=== PATIENT | male | born 1960 | race Hispanic/Latino ===

== ENCOUNTER 2016-07-22 09:19 | Emergency (ER) | payer MEDICARE ==
[2016-07-22 09:36] VITALS: BP 118/86
--- NOTE | 2016-07-22 09:59 | Emergency Department Report ---
Upper Extremity - HPI Chief Complaint: Extremity Injury, Upper Stated Complaint: POSS BROKEN LT WRIST/PAIN Time Seen by Provider: 07/22/16 09:53 Upper Extremity: Left Wrist (pain from injury), Left Hand (pain from injury) Occurred When: 1 Day Mechanism: Fall Severity: severe Symptoms: Yes Pain with Movement (left wrist and hand), No Deformity, No Limited Range of Movement, No Numbness, No Weakness, No Swelling, No Bruising/ Ecchymosis Other History: Patient here reported that he slipped down steps yesterday and injured his left wrist and he is having pain to wrist and hand. He said he took Lortab at home. He said that it relieved the pain a little. He also said that he is applying heat to the site. Denies any numbness or tingling. Denies any head injury. He said he tripped and slipped down about 2 steps. ED Review of Systems ROS: Stated complaint: POSS BROKEN LT WRIST/PAIN Other details as noted in HPI Comment: All other systems reviewed and negative Constitutional: denies: chills, fever Respiratory: no symptoms reported Cardiovascular: denies: chest pain, palpitations, edema, syncope Gastrointestinal: denies: abdominal pain, nausea, vomiting Musculoskeletal: arthralgia. denies: back pain, joint swelling Skin: denies: rash Neurological: denies: numbness, paresthesias, confusion, vertigo ED Past Medical Hx - Past Medical History Previous Medical History?: Yes Hx Congestive Heart Failure: No Hx Diabetes: No Hx Deep Vein Thrombosis: Yes (LEFT LEG AND HX OF IVC FILTER.) Hx Asthma: No Hx COPD: No Additional medical history: back problems chronic back pain in pain management. - Surgical History Past Surgical History?: Yes Additional Surgical History: DVT left leg, choco filter - Social History Smoking Status: Current Every Day Smoker Substance Use Type: Alcohol, Prescribed - Medications Home Medications: Home Medications Medication Instructions Recorded Confirmed Last Taken Type Cyclobenzaprine [Flexeril] 10 mg PO TID PRN #20 tablet 10/27/15 11/10/15 Unknown Rx oxyCODONE /ACETAMINOPHEN [Percocet 1 - 2 tab PO Q6HR PRN #20 tablet 10/27/15 Unknown Rx 5/325] Rivaroxaban [Xarelto] 15 mg PO BID #42 tablet 04/24/16 Unknown Rx Rivaroxaban [Xarelto] 20 mg PO QDAY #30 tab 12/25/15 Unknown Rx Upper Extremity Exam - Exam General: Vital signs noted. No distress. Alert and acting appropriately. This is a 55-year-old male well-nourished well-developed in no acute distress. Head and Torso: No HEENT Abnormality, No Neck Tenderness, No Chest/Lungs Abnormality, No Abdominal Tenderness, No Back Tenderness Shoulder Exam: Yes Normal Range of Motion in Shoulder, No Shoulder Tenderness, No Clavicle Tenderness, No Shoulder Deformity, No AC Joint Tenderness Arm Exam: No Arm/Humerus Tenderness, No Arm Deformity Elbow: Yes Normal Range of Motion in Elbow, No Elbow Tenderness, No Elbow Deformity Forearm: No Forearm Tenderness, No Forearm Deformity, No Pain with Pronation, No Pain with Supination Wrist: Yes Wrist Tenderness, Yes Normal ROM in Wrist, No Wrist Deformity, No Snuffbox Tenderness, No Pain with Axial Thumb Compression Hand: Yes Hand Deformity, Yes Normal ROM in Digit(s), No Hand Tenderness, No Digit Tenderness, No Digit(s) Deformity, No Tendon Dysfunction CMS Exam: Yes Normal Distal Pulses, Yes Normal Capillary Refill, Yes Normal Distal Sensation, No Broken Skin ED Course Vital Signs 07/22/16 09:28 Temperature 97.7 F Pulse Rate 90 Respiratory 16 Rate Blood Pressure 118/86 O2 Sat by Pulse 100 Oximetry - Reevaluation(s) Reevaluation #1: 07/22/16 11:15 Patient given Motrin 800 mg in emergency room for pain ED Medical Decision Making - Radiology Data Radiology results: report reviewed X-ray report of left hand and wrist revealed no fracture or dislocation. - Medical Decision Making ED course: I discussed with patient that his x-ray results were normal and he has no fracture or dislocation. Patient discharged home and he said he will take his Lortab as needed for pain. Discharged home to follow up with orthopedic doctor if pain does not resolved in 2 days. Critical care attestation.: If time is entered above; I have spent that time in minutes in the direct care of this critically ill patient, excluding procedure time. ED Disposition Clinical Impression: Arthralgia of multiple sites, Encounter for smoking cessation counseling Accidental fall Qualifiers: Encounter type: initial encounter Qualified Code(s): W19.XXXA - Unspecified fall, initial encounter Disposition: DISCHARGED TO HOME OR SELFCARE Is pt being admited?: No Does the pt Need Aspirin: No Condition: Stable Instructions: Arthralgia (ED), How to Stop Smoking (ED) Additional Instructions: Rest, ice and elevate area. Referrals: AAYN GUZMÁN MD [Staff Physician] - 07/27/16 Forms: Accompanied Note, Work/School Release Form(ED)
[2016-07-22] MEDS ORDERED: MOTRIN PO ONE (10:00)
--- NOTE | 2016-07-22 10:28 | XRay Report ---
LEFT HAND: The bony architecture is intact. Bony alignment is normal. No soft tissue abnormalities are seen. The joint spaces appear preserved. IMPRESSION: Normal left hand.
--- NOTE | 2016-07-22 10:30 | XRay Report ---
LEFT WRIST: Routine views demonstrate the carpal bones to be well mineralized with well preserved bony mineralization and interosseous joint spaces. The carpal and adjacent articular bones have normal contours. The surrounding soft tissues are unremarkable. IMPRESSION: Normal study.
== END 2016-07-22 11:25 | disposition home or self-care (01) ==
LOC: ED 09:19
DX: M25.532 Pain in left wrist (principal); M79.642 Pain in left hand; Z71.6 Tobacco abuse counseling; G89.29 Other chronic pain; F17.200 Nicotine dependence, unspecified, uncomplicated; Z86.718 Personal history of other venous thrombosis and embolism
CPT/HCPCS: 99283

== ENCOUNTER 2019-12-05 13:06 | Observation (INO) | payer MEDICARE ==
[2019-12-05 14:39] LABS: BUN/Creatinine Ratio 9; Blood Urea Nitrogen 8 mg/dL (9-20); Calcium 9.6 mg/dL (8.4-10.2); Hemolysis Index 34
[2019-12-05 14:43] LABS: Basophils # (Auto) 0.1 K/mm3 (0.0-0.1); Basophils % (Auto) 1.3 % (0.0-1.8); Eosinophils # (Auto) 0.3 K/mm3 (0.0-0.4); Eosinophils % (Auto) 3.8 % (0.0-4.3); Hematocrit 56.8 % (35.5-45.6); Hemoglobin 19.3 gm/dl (11.8-15.2); Lymphocytes # (Auto) 1.9 K/mm3 (1.2-5.4); Mean Corpuscular HGB Conc 34 % (32-34); Mean Corpuscular Volume 105 fl (84-94); Monocytes # (Auto) 0.4 K/mm3 (0.0-0.8); Monocytes % (Auto) 6.7 % (0.0-7.3); Platelet Count 259 K/mm3 (140-440); Red Blood Count 5.39 M/mm3 (3.65-5.03)
--- NOTE | 2019-12-05 16:04 | Emergency Department Report ---
ED General Adult HPI - General Chief complaint: Dyspnea/Respdistress Stated complaint: SANDEE/CHEST PAIN PUI?: No Time Seen by Provider: 12/05/19 16:02 Source: patient, EMS ( EMS documentation not available at time of chart dictation ), RN notes reviewed, old records reviewed Mode of arrival: Ambulatory Limitations: No Limitations - History of Present Illness Initial comments: Vascular surgery: Dr. Iniguez Past medical history: COPD/emphysema, hypertension, massive pulmonary embolus, status post catheter directed lysis/ EKOS, right lower extremity DVT, recent complicated hospital course, compliant with Eliquis therapy, recently admitted to this hospital for pulmonary embolism, had ultrasound confirmed DVT in left lower extremity, seen by vascular surgeon, had fluoroscopic guided removal of suprarenal IVC filter, venography, and aspiration thrombectomy with an 8 Serbian sheath of a small amount of residual thrombus in the infrarenal IVC filter. Patient presents to the ER today with a complaint of nontraumatic left lower extremity pain and swelling. He feels like he has "another blood clot." He also endorses painless shortness of breath. There is no fever, no coronavirus exposure that he is aware of. There is no chest pain. There is no complaint of headache, neck pain, chest pain, abdominal pain, he denies urinary symptoms, and he denies hematemesis and bright red blood per rectum. Shortness of breath is constant, does not radiate anywhere, worsens with physical exertion and decreases with rest. Left lower extremity pain and swelling is constant, does not radiate anywhere, increases with palpation, range of motion, and decreases with rest -: days(s) Location: left, lower extremity Quality: other Consistency: other Improves with: other Worsens with: other Associated Symptoms: other - Related Data Previous Rx's Medication Instructions Recorded Last Taken Type Apixaban [Eliquis] 2 tab PO BID #120 09/22/19 Unknown Rx Budesonide/Formoterol Fumarate 10.2 gm IH BIDPC #1 hfa.aer.ad 09/22/19 Unknown Rx [Symbicort 160-4.5 Mcg Inhaler] HYDROcodone/APAP 10-325 1 tab PO Q6H PRN #15 09/22/19 Unknown Rx Nicotine [Habitrol] 14 mg TD QDAY #14 patch 09/22/19 Unknown Rx Pantoprazole [Protonix TAB] 40 mg PO DAILY #30 tablet 09/22/19 Unknown Rx Aspirin EC [Halfprin EC] 81 mg PO QDAY #30 tablet. 12/06/19 Unknown Rx Allergies Allergy/AdvReac Type Severity Reaction Status Date / Time No Known Allergies Allergy Verified 11/10/19 17:15 ED Review of Systems ROS: Stated complaint: SANDEE/CHEST PAIN Other details as noted in HPI Constitutional: denies: fever Eyes: denies: eye discharge ENT: denies: congestion Respiratory: shortness of breath Cardiovascular: denies: chest pain Gastrointestinal: denies: abdominal pain, hematemesis, melena, hematochezia Genitourinary: denies: dysuria Musculoskeletal: arthralgia, myalgia Skin: denies: lesions Neurological: denies: headache, weakness Psychiatric: anxiety Hematological/Lymphatic: denies: easy bleeding ED Past Medical Hx - Past Medical History Previous Medical History?: Yes Hx Congestive Heart Failure: No Hx Diabetes: No Hx Deep Vein Thrombosis: Yes (LEFT LEG AND HX OF IVC FILTER.) Hx Renal Disease: Yes Hx Asthma: No Hx COPD: No Additional medical history: back problems chronic back pain in pain management. - Surgical History Past Surgical History?: Yes Additional Surgical History: DVT left leg, hcoco filter - Social History Smoking Status: Current Every Day Smoker Substance Use Type: None - Medications Home Medications: Home Medications Medication Instructions Recorded Confirmed Last Taken Type Apixaban [Eliquis] 2 tab PO BID #120 09/22/19 12/06/19 Unknown Rx Budesonide/Formoterol Fumarate 10.2 gm IH BIDPC #1 hfa.aer.ad 09/22/19 12/06/19 Unknown Rx [Symbicort 160-4.5 Mcg Inhaler] HYDROcodone/APAP 10-325 1 tab PO Q6H PRN #15 09/22/19 12/06/19 Unknown Rx Nicotine [Habitrol] 14 mg TD QDAY #14 patch 09/22/19 12/06/19 Unknown Rx Pantoprazole [Protonix TAB] 40 mg PO DAILY #30 tablet 09/22/19 12/06/19 Unknown Rx Aspirin EC [Halfprin EC] 81 mg PO QDAY #30 tablet. 12/06/19 Unknown Rx ED Physical Exam - General Limitations: No Limitations General appearance: alert, in no apparent distress - Head Head exam: Present: atraumatic, normocephalic - Eye Eye exam: Present: normal appearance, EOMI. Absent: nystagmus - ENT ENT exam: Present: normal exam, normal orophraynx, mucous membranes moist, normal external ear exam - Neck Neck exam: Present: normal inspection, full ROM. Absent: tenderness, meningismus - Respiratory Respiratory exam: Present: normal lung sounds bilaterally. Absent: respiratory distress - Cardiovascular Cardiovascular Exam: Present: regular rate, normal rhythm, normal heart sounds. Absent: bradycardia, tachycardia, irregular rhythm, systolic murmur, diastolic murmur, rubs, gallop - GI/Abdominal GI/Abdominal exam: Present: soft. Absent: distended, tenderness, guarding, rebound, rigid, pulsatile mass - Rectal Rectal exam: Present: deferred - Extremities Exam Extremities exam: Present: normal inspection, full ROM, other (2+ pulses noted in the bilateral upper and lower extremities. There is no long bony tenderness. The muscular compartments are soft. There appears to be asymmetric swelling and engorgement of left lower extremity veins. There is a palpable cord. The compartments are soft. There is no evidence of cellulitis). Absent: calf tenderness - Back Exam Back exam: Present: normal inspection, full ROM. Absent: tenderness, CVA tenderness (R), CVA tenderness (L), paraspinal tenderness, vertebral tenderness - Neurological Exam Neurological exam: Present: alert, oriented X3, normal gait, other (No facial droop. Tongue midline. Extraocular movements intact bilaterally. Facial sensation intact to light touch in V1, V2, V3 distribution bilaterally. 5 and a 5 strength in 4 extremities. Sensation intact to light touch in 4 extremities.). Absent: motor sensory deficit - Psychiatric Psychiatric exam: Present: normal affect, normal mood - Skin Skin exam: Present: warm, dry, intact, normal color. Absent: rash ED Course Vital Signs 12/05/19 12/05/19 12/05/19 13:22 18:26 19:28 Temperature 98.6 F Pulse Rate 75 78 69 Respiratory 18 18 19 Rate Blood Pressure 129/88 Blood Pressure 138/68 [Right] O2 Sat by Pulse 96 98 95 Oximetry 12/05/19 12/05/19 12/05/19 19:30 19:32 19:46 Temperature Pulse Rate 74 87 Respiratory 18 16 Rate Blood Pressure 139/92 Blood Pressure 139/72 [Right] O2 Sat by Pulse 93 92 Oximetry 12/05/19 12/05/19 12/05/19 20:00 20:30 21:00 Temperature Pulse Rate 69 74 69 Respiratory 17 17 16 Rate Blood Pressure 127/77 127/77 117/71 Blood Pressure [Right] O2 Sat by Pulse 91 94 91 Oximetry 12/05/19 12/05/19 12/05/19 21:15 21:30 21:32 Temperature Pulse Rate 74 72 80 Respiratory 21 19 18 Rate Blood Pressure 117/71 117/71 117/71 Blood Pressure [Right] O2 Sat by Pulse 96 95 94 Oximetry 12/05/19 12/05/19 12/05/19 22:00 22:30 22:46 Temperature Pulse Rate 65 68 Respiratory 15 15 Rate Blood Pressure 115/73 115/73 Blood Pressure [Right] O2 Sat by Pulse 95 93 94 Oximetry 12/05/19 12/05/19 12/05/19 23:00 23:16 23:30 Temperature Pulse Rate 68 64 63 Respiratory 16 12 13 Rate Blood Pressure 115/73 121/87 121/87 Blood Pressure [Right] O2 Sat by Pulse 96 93 93 Oximetry 12/06/19 12/06/19 12/06/19 00:00 00:16 00:30 Temperature Pulse Rate 63 61 67 Respiratory 14 14 14 Rate Blood Pressure 114/73 114/73 114/73 Blood Pressure [Right] O2 Sat by Pulse 90 93 94 Oximetry 12/06/19 12/06/19 12/06/19 00:46 01:00 01:16 Temperature Pulse Rate 63 59 L 61 Respiratory 15 15 15 Rate Blood Pressure 114/73 119/69 114/73 Blood Pressure [Right] O2 Sat by Pulse 94 91 94 Oximetry 12/06/19 12/06/19 12/06/19 01:30 01:46 02:00 Temperature Pulse Rate 64 59 L 62 Respiratory 14 11 L 16 Rate Blood Pressure 114/73 119/69 122/73 Blood Pressure [Right] O2 Sat by Pulse 96 96 92 Oximetry 12/06/19 12/06/19 12/06/19 02:16 02:30 02:46 Temperature Pulse Rate 68 64 65 Respiratory 13 13 12 Rate Blood Pressure 122/73 122/73 122/73 Blood Pressure [Right] O2 Sat by Pulse 93 93 92 Oximetry 12/06/19 12/06/19 12/06/19 03:00 03:16 03:30 Temperature Pulse Rate 59 L 60 58 L Respiratory 13 12 13 Rate Blood Pressure 106/70 106/70 106/70 Blood Pressure [Right] O2 Sat by Pulse 92 93 95 Oximetry 12/06/19 12/06/19 12/06/19 04:00 04:30 05:00 Temperature Pulse Rate 59 L 63 57 L Respiratory 15 13 14 Rate Blood Pressure 119/78 119/78 113/74 Blood Pressure [Right] O2 Sat by Pulse 89 94 96 Oximetry 12/06/19 12/06/19 12/06/19 05:16 05:30 05:46 Temperature Pulse Rate 58 L 56 L Respiratory 13 14 Rate Blood Pressure 113/74 113/74 113/74 Blood Pressure [Right] O2 Sat by Pulse 97 95 94 Oximetry 12/06/19 12/06/19 12/06/19 06:00 06:16 06:30 Temperature Pulse Rate Respiratory Rate Blood Pressure 116/74 113/74 113/74 Blood Pressure [Right] O2 Sat by Pulse 94 95 96 Oximetry 12/06/19 12/06/19 12/06/19 07:00 08:00 09:00 Temperature 97.7 F Pulse Rate 67 70 76 Respiratory 14 23 15 Rate Blood Pressure 128/87 132/81 Blood Pressure [Right] O2 Sat by Pulse 96 96 97 Oximetry 12/06/19 12/06/19 10:00 11:00 Temperature 97.8 F Pulse Rate 62 63 Respiratory 15 15 Rate Blood Pressure 127/85 117/79 Blood Pressure [Right] O2 Sat by Pulse 97 96 Oximetry - Reevaluation(s) Reevaluation #1: 12/05/19 16:54 Differential diagnosis, including but not limited to: COPD, pneumonia, pulmonary embolism, acute coronary syndrome, Hoyt's cyst Assessment and plan: 59-year-old gentleman with 2 complaints. First complaint is left lower extremity pain and swelling. Suspicious for acute DVT. As per review of old medical records, was diagnosed with acute DVT a few weeks ago. He reports compliance with systemic anticoagulation. Lower extremity DVT study ordered. We will treat his pain. Second complaint is shortness of breath which is painless. Suspicious for pulmonary embolism versus pulmonary hypertension versus COPD. He is not wheezing, not tachypneic, tachycardic or hypoxic. Given his impressive and complex past medical history, it is my opinion that objective imaging is needed to further evaluate his complaint. CT scan of the chest is ordered. He is already on systemic anticoagulation. After diagnostics have resulted, we will reassess. EKG is reviewed and appreciated, fairly unchanged from prior, troponin negative x2. Reevaluation #2: 12/05/19 17:39 Discussed history, physical, sonographic findings with vascular surgeon, Dr. Carrasco. He is agreeable to following in consultation. He is in agreement with unfractionated heparin. I will call back Dr. Carrasco once CT scans have been resulted. Reevaluation #3: 12/05/19 19:16 CT scan of the chest shows chronic findings. CT scan abdomen pelvis inconclusive/nondiagnostic heparin drip to continue Dr Val Quevedo to admit Dr Mike Carrasco to be updated Patient meets criteria for hospitalization as he continues to develop acute clots, and has extensive clot burden, in the setting of compliance with Eliquis/systemic anticoagulation. Reevaluation #4: 12/05/19 19:[address] Carrasco on patient's imaging findings. We are in agreement that the patient can be seen by vascular surgery tomorrow morning. Patient updated on findings. ED Medical Decision Making - Lab Data Result diagrams: 12/05/19 14:05 12/05/19 14:05 Vital Signs 12/05/19 13:22 Temperature 98.6 F Pulse Rate 75 Respiratory 18 Rate Blood Pressure 129/88 O2 Sat by Pulse 96 Oximetry Labs 12/05/19 12/05/19 14:05 14:05 WBC 6.6 RBC 5.39 H Hgb 19.3 H Hct 56.8 H MCV 105 H MCH 36 H MCHC 34 RDW 16.0 H Plt Count 259 Lymph % (Auto) 29.0 [place] % (Auto) 6.7 Eos % (Auto) 3.8 Baso % (Auto) 1.3 Lymph # 1.9 [place] # 0.4 Eos # 0.3 Baso # 0.1 Seg Neutrophils % 59.2 Seg Neutrophils # 3.9 Sodium 139 Potassium 4.5 Chloride 99.6 Carbon Dioxide 28 Anion Gap 16 BUN 8 L Creatinine 0.9 Estimated GFR > 60 BUN/Creatinine Ratio 9 Glucose 140 H Calcium 9.6 Troponin T < 0.010 - EKG Data -: EKG Interpreted by Ar EKG shows normal: sinus rhythm Rate: normal - EKG Data 12/05/19 16:54 Sinus rhythm, 70 bpm, there appears to be an extreme right axis deviation, QTC is within normal limits, there is an incomplete right bundle branch block, there is left ventricular hypertrophy. The EKG is not a STEMI. - Radiology Data Radiology results: report reviewed, image reviewed CHEST 2 VIEWS INDICATION / CLINICAL INFORMATION: Chest Pain. COMPARISON: 11/10/2019 FINDINGS: SUPPORT DEVICES: None. HEART / MEDIASTINUM: No significant abnormality. LUNGS / PLEURA: COPD changes are seen with areas of basilar scarring. No infiltrate, edema or effusion. No definite nodules or masses. No pneumothorax. ADDITIONAL FINDINGS: No significant additional findings. IMPRESSION: 1. No acute findings. Signer Name: Dejuan Flores MD Signed: 12/05/2019 1:11 PM Workstation Name: [employer] Print Report Referring Physician: NAEEM INIGUEZ Patient Name: DOMINGO CARTY Date of : 1960 Sex: Male Report Date: 2019-11-11 Report Status: Finalized Findings [address] [address] Vascular Lab Report Signed Patient: DOMINGO CARTY MR#: [id number] : 1960 Acct:[id number] Age/Sex: 58 / M ADM Date: 11/10/19 Loc: 4A A462-[address]: ROMAINE MATAMOROS MD Ordering Physician: NAEEM INIGUEZ MD Date of Service: 11/11/19 Procedure(s): VL venous duplex LE BILAT Accession Number(s): [id number] cc: NAEEM INIGUEZ MD DUPLEX DOPPLER LOWER EXTREMITY VEINS, BILATERAL INDICATION: le swelling and pain. TECHNIQUE: Duplex doppler imaging was performed through the veins of both lower extremities using venous compression and other maneuvers. COMPARISON: No relevant prior imaging study available. FINDINGS: Right Common femoral vein: Negative. Right Superficial femoral vein: Negative. Right Popliteal vein: Negative. Right Calf veins: Negative. Left Common femoral vein: Thrombus. Left Superficial femoral vein: Thrombus. Left Popliteal vein: Thrombus. Left Calf veins: Negative. Additional findings: None.. IMPRESSION: 1. Positive for DVT in the left lower extremity. 2. No evidence of deep venous thrombosis in the right lower extremity. Signer Name: Adolfo Segundo MD Signed: 11/11/2019 3:35 PM Workstation Name: [id number] Transcribed By: JULIANN Dictated By: Adolfo Segundo MD Electronically Authenticated By: Adolfo Segundo MD Signed Date/Time: 11/11/19 153 DD/ 1532 INDICATION / CLINICAL INFORMATION: history ivc thrombus, 2 ivc filters. COMPARISON: None available. FINDINGS: No evidence of vena caval thrombosis. Signer Name: Adolfo Segundo MD Signed: 11/11/2019 3:32 PM Workstation Name: [id number] Transcribed By: JULIANN Dictated By: Adolfo Segundo MD Electronically Authenticated By: Adolfo Segundo MD Signed Date/Time: 11/11/191531 Patient: DOMINGO CARTY MR#: [id number] : 1960 Acct:[id number] Age/Sex: 58 / M ADM Date: 11/10/19 Loc: ED Attending Dr: Ordering Physician: CHRISTOPHER PAREDES MD Date of Service: 11/10/19 Procedure(s): CT angio chest Accession Number(s): [id number] cc: CHRISTOPHER PAREDES MD CTA CHEST WITH IV CONTRAST INDICATION: sob, recurrent PE CONTRAST: 100 cc Omnipaque 350 IV COMPARISON: CTA chest 09/14/2019, portable chest x-ray today Three-plane MIP reconstructions were produced. All CT scans at this location are performed using CT dose reduction for ALARA by means of automated exposure control. FINDINGS: No significant axillary or chest wall lesions are seen. Visualized portions of the upper abdomen again show right renal and hepatic cysts. Interval placement of an inferior vena cava filter is seen which is above the level of the renal veins at the level of the liver. A small hiatal hernia is noted. No mediastinal or hilar masses are seen. No pleural effusions are noted. No pneumothorax or pneumomediastinum are seen. No obvious endobronchial lesions are noted. No pulmonary nodules or masses are seen. Areas of scarring are again seen in the lower lobes bilaterally. On previous study a peripheral area of infiltrate was seen posteriorly in the right lower lobe which now shows a more limited area of focal density though includes a small area of probable bullous change at the periphery. Possibly this could represent a small area of cavitation though is quite eccentric with very thin anterior border. No air-fluid level is seen. I do not see significant interstitial infiltrates. Aorta shows no aneurysmal dilatation or evidence of dissection. Good opacification of the pulmonary arterial system was achieved. On previous examination there was extensive bilateral pulmonary thromboembolism noted. Today there is still extensive PTE seen which is mostly noted in the mid to smaller branches of the lower lobes bilaterally. This includes the areas with PTE previously. Some PTE is noted in a mid level branches of the right middle lobe which also is unchanged in appearance. A minimal amount of PTE is seen and a posterior branch of the right upper lobe which is also unchanged. No obvious new areas of PTE are seen. No large central PTE is identified. IMPRESSION: 1. There is still extensive bilateral PTE, particularly to the lower lobes, as was seen on study in late August with minimal improvement noted. No new areas of definite acute PTE are seen. 2. In the area of right lower lobe infiltrate/infarction on prior study there is a much smaller area of denser consolidation with slight peripheral cavitation/bullous change as discussed. No new areas of pneumonitis are obvious. 3. Interval placement of an inferior vena cava filter which is completely above the level of the renal veins. Signer Name: Checo Dupont MD Signed: 11/10/2019 10:48 PM Workstation Name: [id number] DUPLEX DOPPLER LOWER EXTREMITY VEINS, BILATERAL INDICATION: b/l lower ext pain swelling. TECHNIQUE: Duplex doppler imaging was performed through the veins of both lower extremities using venous compression and other maneuvers. COMPARISON: 11/11/2019. FINDINGS: Right Common femoral vein: Negative. Right Superficial femoral vein: Negative. Right Popliteal vein: Negative. Right Calf veins: Negative. Left Common femoral vein: Acute DVT. The distal external iliac vein is also involved. Left Superficial femoral vein: Acute DVT. Left Popliteal vein: Acute D VT. Left Calf veins: Acute DVT. Additional findings: None. I MPRESSION: 1. Negative for DVT at the right lower extremity. 2. Extension of DVT on the left with involvement of the calf now present. Signer Name: Oliver Espino MD Signed: 12/05/2019 4:35 PM Workstation Name: [id number] CT angiography of the chest with 2-D reconstructions INDICATION: Shortness of breath, recent prior PTE Comparison: 11/10/2019 Thin section axial images were obtained as well as 2-D reformatted MIP images in all 3 planes FINDINGS: There is no hilar or mediastinal adenopathy. No pleural or pericardial effusion. Lung windows show no nodules, masses or infiltrates. Slight basilar density seen previously is unchanged may be small areas of infarction. There is no thoracic aortic aneurysm or dissection present. Routine axial images as well as 2-D reconstructions through the pulmonary arteries show no evidence of new emboli. Chronic embolus is again seen to the left lower lobe unchanged. Filling defects in the anterior segment of the right upper lobe appear better organized on today's exam. Small right lower lobe defects appear unchanged as well. No new central emboli are seen. Hepatic cysts are incidentally noted. IMPRESSION: Chronic PTE similar to October. No new emboli are seen. Automated exp osure control was utilized to diminish radiation dose. Signer Name: Dejuan Flores MD Signed: 12/05/2019 5:33 PM Workstation Name: [facility] eduction for JONNY by means of automated exposure control. COMPARISON: Abdominal CT scan 09/08/2019 FINDINGS: LOWER CHEST: Please refer to the separately dictated chest CT report. LIVER: Stable hypoattenuating lesions in the left and right lobes. These are probably cysts. The right lobe lesion on series 2 image 31 and left lobe lesion on image 28 are stable since at least 10/19/2015. BILIARY SYSTEM: No significant abnormality. PANCREAS: No significant abnormality. SPLEEN: No significant abnormality. ADRENALS: No significant abnormality. KIDNEYS and URETERS: No acute abnormality or significant change. Large simple cyst at the right upper pole. Calyceal stone in the left kidney unchanged in size and position, without hydronephrosis. STOMACH / BOWEL: No significant abnormality. PERITONEUM: No free fluid. No free air. No fluid collection. LYMPH NODES: No adenopathy. VASCULAR STRUCTURES: No significant stenosis in the arteries. No aneurysm. The veins are nonopacified, limiting evaluation. IVC filter is in satisfactory position. Multiple of its limbs project beyond the wall of the vessel. URINARY BLADDER: No significant abnormality. REPRODUCTIVE ORGANS: Stable prostatomegaly ADDITIONAL FINDINGS: None. SKELETAL SYSTEM: No acute finding or significant change. IMPRESSION: 1. The veins were not opacified by IV contrast on this exam, joseph iting evaluation for presence of thrombus. IVC filter remains in satisfactory position. 2. Otherwise, no acute abnormality or significant change. Signer Name: Naeem Ashton MD Signed: 12/05/2019 6:10 PM Workstation Name: [id number] Critical Care Time: Yes Critical care time in (mins) excluding proc time.: 45 Critical care attestation.: If time is entered above; I have spent that time in minutes in the direct care of this critically ill patient, excluding procedure time. ED Disposition Clinical Impression: Shortness of breath, Left leg pain Left leg DVT Qualifiers: Affected thrombotic vein of extremity: iliac Chronicity: acute Qualified Code(s): I82.422 - Acute embolism and thrombosis of left iliac vein Disposition: - TO HOME OR SELFCARE Is pt being admited?: Yes Does the pt Need Aspirin: No Condition: Fair
[2019-12-05] MEDS ORDERED: oxyCODONE /ACETAMINOPHEN 5-325MG TAB PO ONE (16:10)
[2019-12-05] MEDS ORDERED: SODIUM CHLORIDE 0.9% 250ML 250 ML IV ONE (16:10)
[2019-12-05 16:47] LABS: INR 1.1 (0.87-1.13)
[2019-12-05 16:48] LABS: Partial Thromboplastin Time 26.2 Sec. (24.2-36.6)
[2019-12-05] MEDS ORDERED: HEPARIN 10,000 UNITS/10 ML VIAL IV ONE (17:05)
[2019-12-05] MEDS ORDERED: HEPARIN/ 0.45% NACL DRIP 25,000 UNIT/500 ML BAG IV SCH (18:00)
--- NOTE | 2019-12-05 18:52 | XRay Report ---
CHEST 2 VIEWS INDICATION / CLINICAL INFORMATION: Chest Pain. COMPARISON: 11/10/2019 FINDINGS: SUPPORT DEVICES: None. HEART / MEDIASTINUM: No significant abnormality. LUNGS / PLEURA: COPD changes are seen with areas of basilar scarring. No infiltrate, edema or effusio n. No definite nodules or masses. No pneumothorax. ADDITIONAL FINDINGS: No significant additional findings. IMPRESSION: 1. No acute findings. Signer Name: Dejuan Flores MD Signed: 12/05/2019 2:11 PM Workstation Name: [id number]
--- NOTE | 2019-12-05 18:52 | Vascular Lab Report ---
DUPLEX DOPPLER LOWER EXTREMITY VEINS, BILATERAL INDICATION: b/l lower ext pain swelling. TECHNIQUE: Duplex doppler imaging was performed through the veins of both lower extremities using venous roderick tram and other maneuvers. COMPARISON: 11/11/2019. FINDINGS: Right Common femoral vein: Negative. Right Superficial femoral vein: Negative. Right Popliteal vein: Negative. Right Calf veins: Negative. Left Common femoral vein: Acute DVT. The distal external iliac vein is also involved. Left Superficial femoral vein: Acute DVT. Left Popliteal vein: Acute DVT. Left Calf veins: Acute DVT. Additional findings: None. IMPRESSION: 1. Negative for DVT at the right lower extremity. 2. Extension of DVT on the left with involvement of the calf now present. Signer Name: Oliver Espino MD Signed: 12/05/2019 5:35 PM Workstation Name: [id number]
--- NOTE | 2019-12-05 18:53 | Cat Scan Report ---
CT angiography of the chest with 2-D reconstructions INDICATION: Shortness of breath, recent prior PTE Comparison: 11/10/2019 Thin section axial images were obtained as well as 2-D reformatted MIP images in all 3 planes FINDINGS: There is no hilar or mediastinal adenopathy. No pleural or pericardial effusion. Lung windo ws show no nodules, masses or infiltrates. Slight basilar density seen previously is unchanged may be small areas of infarction. There is no thoracic aortic aneurysm or dissection present. Routine axial images as well as 2-D reconstructions through the pulmonary arteries show no evidence of new emboli. Chronic embolus is again seen to the left lower lobe unchanged. Filling defects in the anterior segm ent of the right upper lobe appear better organized on today's exam. Small right lower lobe defects a ppear unchanged as well. No new central emboli are seen. Hepatic cysts are incidentally noted. IMPRESSION: Chronic PTE similar to October. No new emboli are seen. Automated exposure control was utilized to diminish radiation dose. Signer Name: Dejuan Flores MD Signed: 12/05/2019 6:33 PM Workstation Name: [id number]
--- NOTE | 2019-12-05 19:15 | Cat Scan Report ---
CT ABDOMEN AND PELVIS WITH CONTRAST INDICATION / CLINICAL INFORMATION: MAIN: iliac thrombosis, assess for larger clot burden. 350 OMNIPAQUE, 100ML GIVEN. TECHNIQUE: Axial CT images were obtained through the abdomen and pelvis after 100 mLOmnipaque [address] scans at this location are performed using CT dose reduction for ALARA by means of automated e xposure control. COMPARISON: Abdominal CT scan 09/08/2019 FINDINGS: LOWER CHEST: Please refer to the separately dictated chest CT report. LIVER: Stable hypoattenuating lesions in the left and right lobes. These are probably cysts. The righ t lobe lesion on series 2 image 31 and left lobe lesion on image 28 are stable since at least 6. BILIARY SYSTEM: No significant abnormality. PANCREAS: No significant abnormality. SPLEEN: No significant abnormality. ADRENALS: No significant abnormality. KIDNEYS and URETERS: No acute abnormality or significant change. Large simple cyst at the right upper pole. Calyceal stone in the left kidney unchanged in size and position, without hydronephrosis. STOMACH / BOWEL: No significant abnormality. PERITONEUM: No free fluid. No free air. No fluid collection. LYMPH NODES: No adenopathy. VASCULAR STRUCTURES: No significant stenosis in the arteries. No aneurysm. The veins are nonopacified , limiting evaluation. IVC filter is in satisfactory position. Multiple of its limbs project beyond t he wall of the vessel. URINARY BLADDER: No significant abnormality. REPRODUCTIVE ORGANS: Stable prostatomegaly ADDITIONAL FINDINGS: None. SKELETAL SYSTEM: No acute finding or significant change. IMPRESSION: 1. The veins were not opacified by IV contrast on this exam, limiting evaluation for presence of thr ombus. IVC filter remains in satisfactory position. 2. Otherwise, no acute abnormality or significant change. Signer Name: Trav Ashton MD Signed: 12/05/2019 7:10 PM Workstation Name: [id number]
[2019-12-05] MEDS ORDERED: MORPHINE 4 MG/1 ML INJ IV ONE (19:43)
--- NOTE | 2019-12-05 21:50 | History and Physical Report ---
History of Present Illness Date of examination: 12/05/19 Date of admission: 12/05/19 19:19 Chief complaint: Leg pain for 1 week History of present illness: 59 y/o male presents to the ER today with a complaint of left lower extremity pain and swelling. He feels like he has "another blood clot." He also endorses painless shortness of breath. There is no fever, no coronavirus exposure that he is aware of. There is no chest pain. There is no complaint of headache, neck pain, chest pain, abdominal pain, he denies urinary symptoms, and he denies hematemesis and bright red blood per rectum. Shortness of breath is constant, worsens with physical exertion and decreases with rest. Left lower extremity pain and swelling is constant, does not radiate anywhere, increases with palpation, range of motion, and decreases with rest.Pain is 10/10 Past medical history: COPD/emphysema, hypertension, massive pulmonary embolus, status post catheter directed lysis/ EKOS, right lower extremity DVT, recent complicated hospital course, compliant with Eliquis therapy, recently admitted to this hospital for pulmonary embolism, had ultrasound confirmed DVT in left lower extremity, seen by vascular surgeon, had fluoroscopic guided removal of suprarenal IVC filter, venography, and aspiration thrombectomy with an 8 Persian sheath of a small amount of residual thrombus in the infrarenal IVC filter. Past Medical History Previous Medical History?: Yes Deep Vein Thrombosis: Yes (LEFT LEG AND HX OF IVC FILTER.) Renal Disease: Yes Additional medical history: back problems chronic back pain in pain management. - Surgical History Past Surgical History?: Yes Additional Surgical History: DVT left leg, choco filter - Social History Smoking Status: Current Every Day Smoker Substance Use Type: None Family history Htn - Medications Home Medications: Home Medications Medication Instructions Recorded Confirmed Last Taken Type Apixaban [Eliquis] 2 tab PO BID #120 09/22/19 11/11/19 Unknown Rx Budesonide/Formoterol Fumarate 10.2 gm IH BIDPC #1 hfa.aer.ad 09/22/19 11/11/19 Unknown Rx [Symbicort 160-4.5 Mcg Inhaler] HYDROcodone/APAP 10-325 1 tab PO Q6H PRN #15 09/22/19 11/11/19 Unknown Rx Nicotine [Habitrol] 14 mg TD QDAY #14 patch 09/22/19 11/11/19 Unknown Rx Pantoprazole [Protonix TAB] 40 mg PO DAILY #30 tablet 09/22/19 11/11/19 Unknown Rx Review of Systems ROS: Stated complaint: SANDEE/CHEST PAIN Other details as noted in HPI Constitutional: denies: fever Eyes: denies: eye discharge ENT: denies: congestion Respiratory: shortness of breath Cardiovascular: denies: chest pain Gastrointestinal: denies: abdominal pain, hematemesis, melena, hematochezia Genitourinary: denies: dysuria Musculoskeletal: arthralgia, myalgia Skin: denies: lesions Neurological: denies: headache, weakness Psychiatric: anxiety Hematological/Lymphatic: denies: easy bleeding Medications and Allergies Allergies Allergy/AdvReac Type Severity Reaction Status Date / Time No Known Allergies Allergy Verified 11/10/19 17:15 Home Medications Medication Instructions Recorded Confirmed Last Taken Type Apixaban [Eliquis] 2 tab PO BID #120 09/22/19 12/06/19 Unknown Rx Budesonide/Formoterol Fumarate 10.2 gm IH BIDPC #1 hfa.aer.ad 09/22/19 12/06/19 Unknown Rx [Symbicort 160-4.5 Mcg Inhaler] HYDROcodone/APAP 10-325 1 tab PO Q6H PRN #15 09/22/19 12/06/19 Unknown Rx Nicotine [Habitrol] 14 mg TD QDAY #14 patch 09/22/19 12/06/19 Unknown Rx Pantoprazole [Protonix TAB] 40 mg PO DAILY #30 tablet 09/22/19 12/06/19 Unknown Rx Active Meds: Active Medications Heparin Sodium/Sodium Chloride (Heparin/ 0.45% Nacl-25,000 Unit/500 Ml) 25,000 unit in 500 mls @ 24 mls/hr IV TITR PEPE; Protocol Last Admin: 12/05/19 17:46 Dose: 1,200 units/hr, 24 mls/hr Documented by: Exam - Constitutional Vitals: Temp Pulse Resp BP Pulse Ox 98.6 F 72 19 117/71 95 12/05/19 13:22 12/05/19 21:30 12/05/19 21:30 12/05/19 21:30 12/05/19 21:30 General appearance: Present: mild distress, well-nourished - EENT Eyes: Present: PERRL ENT: hearing intact, clear oral mucosa - Neck Neck: Present: supple, normal ROM - Respiratory Respiratory effort: normal Respiratory: bilateral: CTA - Cardiovascular Heart rate: 78 Rhythm: regular Heart Sounds: Present: S1 & S2. Absent: rub, click - Extremities Extremities: pulses intact, pulses symmetrical, No edema, abnormal (LLE swelling and tenderness present) Peripheral Pulses: within normal limits - Abdominal General gastrointestinal: Present: soft, non-tender, non-distended, normal bowel sounds Male genitourinary: Present: normal - Rectal Rectal Exam: deferred - Integumentary Integumentary: Present: clear, warm, dry - Musculoskeletal Musculoskeletal: gait normal, strength equal bilaterally - Psychiatric Psychiatric: appropriate mood/affect, intact judgment & insight - Neurologic Neurologic: CNII-XII intact, moves all extremities - Allied Health Allied health notes reviewed: nursing, case management HEART Score - HEART Score Troponin: Troponin T < 0.010 ng/mL (0.00-0.029) 12/05/19 16:21 Results - Labs CBC & Chem 7: 12/05/19 14:05 12/05/19 14:05 Labs: Laboratory Last Values WBC 6.6 K/mm3 (4.5-11.0) 12/05/19 14:05 RBC 5.39 M/mm3 (3.65-5.03) H 12/05/19 14:05 Hgb 19.3 gm/dl (11.8-15.2) H 12/05/19 14:05 Hct 56.8 % (35.5-45.6) H 12/05/19 14:05 MCV 105 fl (84-94) H 12/05/19 14:05 MCH 36 pg (28-32) H 12/05/19 14:05 MCHC 34 % (32-34) 12/05/19 14:05 RDW 16.0 % (13.2-15.2) H 12/05/19 14:05 Plt Count 259 K/mm3 (140-440) 12/05/19 14:05 Lymph % (Auto) 29.0 % (13.4-35.0) 12/05/19 14:05 [place] % (Auto) 6.7 % (0.0-7.3) 12/05/19 14:05 Eos % (Auto) 3.8 % (0.0-4.3) 12/05/19 14:05 Baso % (Auto) 1.3 % (0.0-1.8) 12/05/19 14:05 Lymph # 1.9 K/mm3 (1.2-5.4) 12/05/19 14:05 [place] # 0.4 K/mm3 (0.0-0.8) 12/05/19 14:05 Eos # 0.3 K/mm3 (0.0-0.4) 12/05/19 14:05 Baso # 0.1 K/mm3 (0.0-0.1) 12/05/19 14:05 Seg Neutrophils % 59.2 % (40.0-70.0) 12/05/19 14:05 Seg Neutrophils # 3.9 K/mm3 (1.8-7.7) 12/05/19 14:05 PT 14.3 Sec. (12.2-14.9) 12/05/19 16:21 INR 1.10 (0.87-1.13) 12/05/19 16:21 APTT 26.2 Sec. (24.2-36.6) 12/05/19 16:21 D-Dimer 163.83 ng/mlDDU (0-234) 12/05/19 16:21 Sodium 139 mmol/L (137-145) 12/05/19 14:05 Potassium 4.5 mmol/L (3.6-5.0) 12/05/19 14:05 Chloride 99.6 mmol/L (98-107) 12/05/19 14:05 Carbon Dioxide 28 mmol/L (22-30) 12/05/19 14:05 Anion Gap 16 mmol/L 12/05/19 14:05 BUN 8 mg/dL (9-20) L 12/05/19 14:05 Creatinine 0.9 mg/dL (0.8-1.5) 12/05/19 14:05 Estimated GFR > 60 ml/min 12/05/19 14:05 BUN/Creatinine Ratio 9 % 12/05/19 14:05 Glucose 140 mg/dL (75-100) H 12/05/19 14:05 Calcium 9.6 mg/dL (8.4-10.2) 12/05/19 14:05 Magnesium 2.20 mg/dL (1.7-2.3) 12/05/19 16:21 Total Creatine Kinase 56 units/L (55-170) 12/05/19 16:21 Troponin T < 0.010 ng/mL (0.00-0.029) 12/05/19 16:21 Short CBC 12/05/19 Range/Units 14:05 WBC 6.6 (4.5-11.0) K/mm3 Hgb 19.3 H (11.8-15.2) gm/dl Hct 56.8 H (35.5-45.6) % Plt Count 259 (140-440) K/mm3 BMP 12/05/19 14:05 Sodium 139 Potassium 4.5 Chloride 99.6 Carbon Dioxide 28 BUN 8 L Creatinine 0.9 Glucose 140 H Calcium 9.6 Cardiac Enzymes 12/05/19 12/05/19 12/05/19 Range/Units 14:05 16:21 16:21 Total Creatine Kinase 56 (55-170) units/L Troponin T < 0.010 < 0.010 (0.00-0.029) ng/mL - Imaging and Cardiology EKG: report reviewed (NSR 70/min) Imaging and Cardiology: Duplex scan LLE FINDINGS: Right Common femoral vein: Negative. Right Superficial femoral vein: Negative. Right Popliteal vein: Negative. Right Calf veins: Negative. Left Common femoral vein: Acute DVT. The distal external iliac vein is also involved. Left Superficial femoral vein: Acute DVT. Left Popliteal vein: Acute DVT. Left Calf veins: Acute DVT. Additional findings: None . IMPRESSION: 1. Negative for DVT at the right lower extremity. 2. Extension of DVT on the left with involvement of the calf now present. Signer Name: Oliver Espino MD CTA chest IMPRESSION: Chronic PTE similar to October. No new emboli are seen. Assessment and Plan Advance Directives: Yes (Full code) VTE prophylaxis?: Chemical Plan of care discussed with patient/family: Yes - Patient Problems (1) Left leg DVT Current Visit: Yes Status: Acute Qualifiers: Affected thrombotic vein of extremity: iliac Chronicity: acute Qualified Code(s): I82.422 - Acute embolism and thrombosis of left iliac vein Plan to address problem: Initiated on IV Heparin drip Vascular surgery consult Patient wwas compliant with Eliquis May need to be on Coumadin Will defer to Vascular surgery (2) COPD (chronic obstructive pulmonary disease) Current Visit: Yes Status: Chronic Qualifiers: Emphysema type: unspecified Plan to address problem: Cont symbicort (3) GERD (gastroesophageal reflux disease) Current Visit: Yes Status: Chronic Qualifiers: Esophagitis presence: without esophagitis Qualified Code(s): K21.9 - Gastro-esophageal reflux disease without esophagitis Plan to address problem: cont PPI's (4) DVT prophylaxis Current Visit: Yes Status: Acute Plan to address problem: On Heparin and GI prophylaxis
[2019-12-05] MEDS ORDERED: METOCLOPRAMIDE 10 MG/2 ML INJ IV PRN (21:54)
[2019-12-05] MEDS ORDERED: HYDROmorphone 1 MG/1 ML INJ IV PRN (21:54)
[2019-12-05] MEDS ORDERED: ONDANSETRON 4 MG/2 ML INJ IV PRN (21:54)
[2019-12-05] MEDS ORDERED: ACETAMINOPHEN 325 MG TAB PO PRN (21:54)
[2019-12-05] MEDS ORDERED: NON-FORMULARY EACH (Budesonide/Formoterol Fumarate [Symbicort 160-4.5 Mcg Inhaler] 10.2 GM IH SCH (22:00)
[2019-12-05] MEDS ORDERED: SODIUM CHLORIDE 0.45% 1000 ML 1,000 ML IV SCH (22:00)
[2019-12-05] MEDS ORDERED: MORPHINE 4 MG/1 ML INJ ONE (22:01)
[2019-12-05] MEDS ORDERED: HYDROcodone/ACETAMINOPHEN 10-325MG TAB PO PRN (22:43)
[2019-12-06] MEDS ORDERED: ARFORMOTEROL 15 MCG/2 ML NEBU IH SCH (08:00)
[2019-12-06] MEDS ORDERED: BUDESONIDE 0.5 MG/2 ML NEBU IH SCH (08:00)
--- NOTE | 2019-12-06 08:33 | Consultation ---
History of Present Illness - Reason for Consult Consult date: 12/06/19 Left Lower Extremity Swelling and Shortness of Breath Requesting physician: ROMAINE RENEE - History of Present Illness The patient is a 59-year-old male with a history of bilateral lower extremity DVTs, thrombosis of his bilateral iliac veins and inferior vena cava who underwent percutaneous mechanical thrombectomy of his lower extremities as well as his iliac veins and vena cava. He also underwent thrombolysis of his pulmonary arteries for bilateral pulmonary emboli. He presented to the emergency department with complaints of left lower extremity swelling and shortness of breath. He presented to the emergency department with similar complaints 3 weeks ago and had an ultrasound that was suggestive of acute left lower extremity DVT. At that time he had a removal of his suprarenal IVC filter as well as percutaneous mechanical thrombectomy of his IVC and a diagnostic venogram of bilateral lower extremities which revealed chronic thrombus in the left lower extremity. There was no intervention performed on his left lower extremity at that time and he was discharged on his Eliquis. It was recommended that he wear compression socks on bilateral lower extremities which he states he has however he states that his compression socks are not very tight and he states that he wears them to bed at night but does not wear them during the day. He has no additional complaints at this time. In addition to those recommendations and reviewing the patient's labs the patient likely has polycythemia secondary to his history of smoking and COPD. His current hemoglobin and hematocrit are Past History Past Medical History: COPD, DVT, GERD, pulmonary embolism Past Surgical History: Other (IVC filter placement, percutaneous mechanical thrombectomy of bilateral lower extremity and inferior vena cava, thrombolysis of pulmonary arteries) Social history: smoking Medications and Allergies Allergies Allergy/AdvReac Type Severity Reaction Status Date / Time No Known Allergies Allergy Verified 11/10/19 17:15 Home Medications Medication Instructions Recorded Confirmed Last Taken Type Apixaban [Eliquis] 2 tab PO BID #120 09/22/19 12/06/19 Unknown Rx Budesonide/Formoterol Fumarate 10.2 gm IH BIDPC #1 hfa.aer.ad 09/22/19 12/06/19 Unknown Rx [Symbicort 160-4.5 Mcg Inhaler] HYDROcodone/APAP 10-325 1 tab PO Q6H PRN #15 09/22/19 12/06/19 Unknown Rx Nicotine [Habitrol] 14 mg TD QDAY #14 patch 09/22/19 12/06/19 Unknown Rx Pantoprazole [Protonix TAB] 40 mg PO DAILY #30 tablet 09/22/19 12/06/19 Unknown Rx Active Meds: Active Medications Acetaminophen (Tylenol) 650 mg PO Q4H PRN PRN Reason: Pain MILD(1-3)/Fever >100.5/HUNT Acetaminophen/Hydrocodone Bitart ([place] 10/325) 1 each PO Q6H PRN PRN Reason: Pain, Moderate (4-6) Arformoterol Tartrate (Brovana Nebu) 15 mcg IH Q12HRT PEPE Budesonide (Pulmicort) 0.5 mg IH Q12HRT PEPE Hydromorphone HCl (Dilaudid) 1 mg IV Q3H PRN PRN Reason: Pain , Severe (7-10) Heparin Sodium/Sodium Chloride (Heparin/ 0.45% Nacl-25,000 Unit/500 Ml) 25,000 unit in 500 mls @ 24 mls/hr IV TITR PEPE; Protocol Last Titration: 12/06/19 07:54 Dose: 1,200 units/hr, 24 mls/hr Documented by: Sodium Chloride (Nacl 0.45% 1000 Ml) 1,000 mls @ 75 mls/hr IV DIRECT PEPE Metoclopramide HCl (Reglan) 10 mg IV Q6H PRN PRN Reason: Nausea And Vomiting Nicotine (Habitrol) 14 mg TD QDAY [facility] [place] Ondansetron HCl (Zofran) 4 mg IV Q3H PRN PRN Reason: Nausea And Vomiting Pantoprazole Sodium (Protonix) 40 mg PO DAILY [facility] [place] Sodium Chloride (Sodium Chloride Flush Syringe 10 Ml) 10 ml IV BID [facility] [place] Last Admin: 12/05/19 22:24 Dose: 10 ml Documented by: Sodium Chloride (Sodium Chloride Flush Syringe 10 Ml) 10 ml IV PRN PRN PRN Reason: LINE FLUSH Review of Systems All systems: negative Exam - Constitutional Vitals: Temp Pulse Resp BP Pulse Ox 98.6 F 56 L 14 113/74 96 12/05/19 13:22 12/06/19 05:30 12/06/19 05:30 12/06/19 06:30 12/06/19 06:30 General appearance: Present: no acute distress - Neck Neck: Present: supple - Respiratory Respiratory effort: normal - Cardiovascular Rhythm: regular - Extremities Extremities: no ischemia, pulses intact Extremity abnormal: edema (Minimal left lower extremity edema with multiple varicose veins, no right lower extremity appreciated) - Abdominal General gastrointestinal: Present: soft, non-tender, non-distended Male genitourinary: Present: deferred - Rectal Rectal Exam: deferred - Musculoskeletal Musculoskeletal: strength equal bilaterally Results - Labs CBC & Chem 7: 12/05/19 14:05 12/05/19 14:05 Labs: Abnormal lab results 12/05/19 12/05/19 12/05/19 Range/Units 14:05 14:05 23:45 RBC 5.39 H (3.65-5.03) M/mm3 Hgb 19.3 H (11.8-15.2) gm/dl Hct 56.8 H (35.5-45.6) % MCV 105 H (84-94) fl MCH 36 H (28-32) pg RDW 16.0 H (13.2-15.2) % Heparin Anti-Xa Level 0.88 H (0.3-0.7) U.I./ml BUN 8 L (9-20) mg/dL Glucose 140 H (75-100) mg/dL 12/06/19 Range/Units 07:05 RBC (3.65-5.03) M/mm3 Hgb (11.8-15.2) gm/dl Hct (35.5-45.6) % MCV (84-94) fl MCH (28-32) pg RDW (13.2-15.2) % Heparin Anti-Xa Level 0.25 L (0.3-0.7) U.I./ml BUN (9-20) mg/dL Glucose (75-100) mg/dL - Imaging and Cardiology CT scan - chest: report reviewed, image reviewed Venous US: report reviewed, image reviewed, other (The venous duplex was reviewed and although this was reported as acute left lower extremity DVT the findings are more consistent with chronic nonocclusive DVT of the common femoral, superficial femoral, and popliteal veins.) Assessment and Plan The patient is a 59-year-old male with a history of multiple DVTs, thrombus within the inferior vena cava, and bilateral pulmonary emboli who underwent percutaneous mechanical thrombectomy as well as thrombolysis of his pulmonary emboli. He presented with complaints of left lower extremity swelling and shortness of breath. He is currently on Eliquis for his anticoagulation and is compliant. His venous duplex is consistent with chronic DVT of the left lower extremity and his left lower extremity swelling is secondary to his confusion as to when he should wear his compression stockings and the need for adequate amount of compression for his degree of venous hypertension. Additionally the patient has no evidence of new pulmonary embolus and I believe his shortness of breath is secondary to anxiety that is linked to the significant swelling that is caused by having his left lower extremity in dependent positions for prolonged periods of time. I counseled the patient about coming to the office to get a prescription for compression stockings or ordering them on [employer] after being measured in the office as this is a cheaper option. I also discussed that he needs to wear them during the day and take them off at night and it is much easier if he puts them on first thing in the morning prior to his left leg swelling. In addition to those recommendations and reviewing the patient's labs he has polycythemia likely secondary to his history of smoking and COPD. His current hemoglobin and hematocrit are 19.3 and 56.8 respectively. Review of his previou s labs revealed that although the hemoglobin and hematocrit were previously in the low teens and 30s this was during the time he presented with DVT and underwent thrombectomies. When he presented 3 weeks ago his hemoglobin was in the high 40s and is continued to trend up. The patient would benefit from adding aspirin 81 mg p.o. daily to his regimen of anticoagulation to prevent further thrombosis of his veins given his history of clotting and COPD.
[2019-12-06] MEDS ORDERED: PANTOPRAZOLE 40 MG TAB PO ONE (09:29)
[2019-12-06] MEDS ORDERED: ASPIRIN 81 MG TAB CHEW ONE (09:37)
[2019-12-06] MEDS ORDERED: NICOTINE 14 MG/24 HR PATCH TD SCH (10:00)
[2019-12-06] MEDS ORDERED: ASPIRIN EC 81 MG TAB PO SCH (10:00)
[2019-12-06] MEDS ORDERED: PANTOPRAZOLE 40 MG TAB PO SCH (10:00)
--- NOTE | 2019-12-06 10:40 | Discharge Summary ---
Providers - Providers Date of Admission: 12/05/19 19:19 Date of discharge: 12/06/19 Attending physician: ROMAINE MATAMOROS 12/05/19 17:05 Consult to Physician [CONS] Urgent Comment: Consulting Provider: NAEEM INIGUEZ Physician Instructions: Reason For Exam: acute on chronic dvt Primary care physician: NAEEM INIGUEZ Hospitalization Condition: Fair Hospital course: Patient is 59 y/o male with history of pulmonary embolism, DVT leg, hypertension, COPD. He presented to the Emergency Department with a complaint of left lower extremity pain and swelling. He feels like he has "another blood clot." He also endorses painless shortness of breath. There is no fever. There is no chest pain. He was just discharged from hospital 1 month ago. He was seen and evaluated in ED. CT Angio Chest showed chronic pulmonary embolism,unchanged. Doppler legs show DVT left leg. He was evaluated by vascular surgeon who stated patient can be discharged home from ED since CT Angio is unchanged. He was asked to follow up as outpatient, continue [place]. Disposition: DC- TO HOME OR SELFCARE - Discharge Diagnoses (1) Chronic pulmonary embolism Status: Acute (2) Left leg DVT Status: Acute Qualifiers: Affected thrombotic vein of extremity: iliac Chronicity: acute Qualified Code(s): I82.422 - Acute embolism and thrombosis of left iliac vein (3) COPD (chronic obstructive pulmonary disease) Status: Chronic Core Measure Documentation - Palliative Care Palliative Care/ Comfort Measures: Not Applicable - Core Measures Any of the following diagnoses?: DVT/PE - VTE Discharge Requirements Deep Vein Thrombosis/Pulmonary Embolism Present on Admission: Yes Has pt received <5 days of overlap therapy or INR<2.0: Yes Anticoagulant overlap therapy prescribed at discharge: No Contraindication No Overlap Therapy order at DC: Not Indicated (On Eliquis) Exam - Constitutional Vitals: Temp Pulse Resp BP Pulse Ox 97.7 F 76 18 132/81 97 12/06/19 08:00 12/06/19 09:00 12/06/19 10:00 12/06/19 09:00 12/06/19 10:00 Plan Activity: advance as tolerated Diet: low fat, low cholesterol, low salt Additional Instructions: 1.Follow up with yenni Oswald as scheduled. Follow up with: NAEEM INIGUEZ MD [Primary Care Provider] - 3-5 Days Prescriptions: Aspirin EC [Halfprin EC] 81 mg PO QDAY #30 tablet.
[2019-12-06 11:08] VITALS: BP 117/79
== END 2019-12-06 11:20 | disposition home or self-care (01) ==
LOC: ED 13:06 → 4A 19:19
PROVIDERS: ADMIT Internal Medicine; ATTEND Internal Medicine
DX: I82.422 Acute embolism and thrombosis of left iliac vein (principal); K21.9 Gastro-esophageal reflux disease without esophagitis; I26.99 Other pulmonary embolism without acute cor pulmonale; J43.9 Emphysema, unspecified; G89.29 Other chronic pain; M54.9 Dorsalgia, unspecified; F17.200 Nicotine dependence, unspecified, uncomplicated; Z91.14 Patient's other noncompliance with medication regimen; Z79.01 Long term (current) use of anticoagulants; Z79.51 Long term (current) use of inhaled steroids; Z79.899 Other long term (current) drug therapy
CPT/HCPCS: 36415; 71046; 71275; 74177; 80048; 82550; 83735; 84484; 85025; 85379; 85520; 85610; 85730; 93005; 93970; 96365; 96366; 96375; 96376; 99291; G0378; J1644; J2270; J7050; Q9967

== ENCOUNTER 2020-06-01 18:29 | Emergency (ER) | payer MEDICARE ==
[2020-06-01 18:36] VITALS: BP 119/81
== END 2020-06-01 20:48 | disposition left against medical advice (07) ==
LOC: ED 18:29
DX: M79.605 Pain in left leg (principal); Z53.21 Procedure and treatment not carried out due to patient leaving prior to being seen by health care provider

== ENCOUNTER 2020-09-16 16:47 | Observation (INO) | payer OTHER, MEDICARE ==
[2020-09-16 17:37] LABS: Basophils # (Auto) 0.1 K/mm3 (0.0-0.1); Basophils % (Auto) 1.5 % (0.0-1.8); Eosinophils # (Auto) 0.4 K/mm3 (0.0-0.4); Eosinophils % (Auto) 5.3 % (0.0-4.3); Hematocrit 50.8 % (35.5-45.6); Hemoglobin 17.6 gm/dl (11.8-15.2); Lymphocytes # (Auto) 2.8 K/mm3 (1.2-5.4); Lymphocytes % (Auto) 34.8 % (13.4-35.0); Mean Corpuscular HGB Conc 35 % (32-34); Mean Corpuscular Volume 105 fl (84-94); Monocytes # (Auto) 0.6 K/mm3 (0.0-0.8); Monocytes % (Auto) 7.2 % (0.0-7.3); Platelet Count 272 K/mm3 (140-440); Red Blood Count 4.85 M/mm3 (3.65-5.03); Red Cell Distribution Width 14.4 % (13.2-15.2)
[2020-09-16 17:55] LABS: BUN/Creatinine Ratio 8; Blood Urea Nitrogen 7 mg/dL (9-20); Calcium 9.1 mg/dL (8.4-10.2); Hemolysis Index 22
--- NOTE | 2020-09-16 19:09 | Emergency Department Report ---
Blank Doc - Documentation Documentation: 59-year-old male that presents with left leg pain and swelling. Patient was s ent by PCP for possible blood clot. 1- This initial assessment/diagnostic orders/clinical plan/ treatment(s) is/are subject to change based on pt's health status, clinical progression and re-assessment by fellow clinical providers in the ED. Further treatment and workup at subsequent clinical provers discretion. Patient/guardians urged not to elope from ED as their condition may be serious if not clinically assessed and managed. 2-Doppler ultrasound 3-labs
[2020-09-16 19:47] LABS: Partial Thromboplastin Time 27.2 Sec. (24.2-36.6)
[2020-09-16] MEDS ORDERED: fentaNYL 100 MCG/2 ML INJ IM ONE (20:07)
[2020-09-16] MEDS ORDERED: ONDANSETRON 4 MG/2 ML INJ IM ONE (20:07)
--- NOTE | 2020-09-16 20:10 | Emergency Department Report ---
HPI - General Chief Complaint: Extremity Injury, Lower Time Seen by Provider: 09/16/20 17:10 - HPI HPI: Room 44 The patient is a 59-year-old male present with a chief complaint of left calf pain. 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 Patient denies any preceding trauma. Patient describes the pain is constant in nature. Patient denies any history of fever. Patient currently gives his pain a score of 10/10 ED Past Medical Hx - Past Medical History Hx Deep Vein Thrombosis: Yes Hx Pulmonary Embolism: Yes Hx Renal Disease: Yes Additional medical history: back problems chronic back pain in pain management. - Surgical History Additional Surgical History: DVT left leg, choco filter - Family History Family history: no significant - Social History Smoking Status: Current Every Day Smoker (1/2 pack/day) Substance Use Type: None (Denies illicit drug use) - Medications Home Medications: Home Medications Medication Instructions Recorded Confirmed Last Taken Type Apixaban [Eliquis] 2 tab PO BID #120 09/22/19 12/06/19 Unknown Rx Budesonide/Formoterol Fumarate 10.2 gm IH BIDPC #1 hfa.aer.ad 09/22/19 12/06/19 Unknown Rx [Symbicort 160-4.5 Mcg Inhaler] HYDROcodone/APAP 10-325 1 tab PO Q6H PRN #15 09/22/19 12/06/19 Unknown Rx Nicotine [Habitrol] 14 mg TD QDAY #14 patch 09/22/19 12/06/19 Unknown Rx Pantoprazole [Protonix TAB] 40 mg PO DAILY #30 tablet 09/22/19 12/06/19 Unknown Rx Aspirin EC [Halfprin EC] 81 mg PO QDAY #30 tablet. 12/06/19 Unknown Rx ED Review of Systems ROS: Stated complaint: LEFT LEG PAIN Other details as noted in HPI Constitutional: denies: fever Eyes: denies: eye pain ENT: denies: throat pain Cardiovascular: denies: chest pain Endocrine: no symptoms reported Gastrointestinal: denies: abdominal pain Genitourinary: denies: dysuria Musculoskeletal: myalgia Neurological: denies: headache Physical Exam - Physical Exam Vital Signs: Vital Signs 09/16/20 09/16/20 17:11 19:57 Temperature 97.8 F 98.2 F Pulse Rate 79 72 Respiratory 18 19 Rate Blood Pressure 112/71 O2 Sat by Pulse 97 99 Oximetry Physical Exam: GENERAL: The patient is well-developed well-nourished male lying on stretcher not appearing to be in acute distress. [] HEENT: Normocephalic. Atraumatic. Extraocular motions are intact. Patient has moist mucous membranes. NECK: Supple. Trachea midline CHEST/LUNGS: Clear to auscultation. There is no respiratory distress noted. HEART/CARDIOVASCULAR: Regular. There is no tachycardia. There is no gallop rub or murmur. 2+ left DP ABDOMEN: Abdomen is soft, nontender. Patient has normal bowel sounds. There is no abdominal distention. SKIN: There is no rash. There is no diaphoresis. NEURO: The patient is awake, alert, and oriented. The patient is cooperative. The patient has no focal neurologic deficits. The patient has normal speech MUSCULOSKELETAL: There is tenderness in the left calf ED Course Vital Signs 09/16/20 09/16/20 17:11 19:57 Temperature 97.8 F 98.2 F Pulse Rate 79 72 Respiratory 18 19 Rate Blood Pressure 112/71 O2 Sat by Pulse 97 99 Oximetry ED Medical Decision Making - Lab Data Result diagrams: 09/16/20 17:23 09/16/20 17:23 Laboratory Tests 09/16/20 09/16/20 09/16/20 17:23 17:23 19:26 WBC 8.1 RBC 4.85 Hgb 17.6 H Hct 50.8 H MCV 105 H MCH 36 H MCHC 35 H RDW 14.4 Plt Count 272 Lymph % (Auto) 34.8 [place] % (Auto) 7.2 Eos % (Auto) 5.3 H Baso % (Auto) 1.5 Lymph # (Auto) 2.8 [place] # (Auto) 0.6 Eos # (Auto) 0.4 Baso # (Auto) 0.1 Seg Neutrophils % 51.2 Seg Neutrophils # 4.1 PT 13.1 INR 1.00 APTT 27.2 Sodium 141 Potassium 4.1 Chloride 103.0 Carbon Dioxide 30 Anion Gap 12 BUN 7 L Creatinine 0.9 Estimated GFR > 60 BUN/Creatinine Ratio 8 Glucose 92 Calcium 9.1 - Radiology Data Radiology results: report reviewed (Left lower extremity Doppler), image reviewed (Left lower extremity Doppler) DUPLEX DOPPLER LOWER EXTREMITY VEINS, LEFT INDICATION / CLINICAL INFORMATION: left leg pain. TECHNIQUE: Duplex doppler imaging was performed through the veins of the left lower extremity using venous compression and other maneuvers. COMPARISON: Left lower extremity venous Doppler dated 01/29/2020. FINDINGS: LEFT COMMON FEMORAL VEIN: Chronic thrombus. No acute thrombus. LEFT FEMORAL VEIN: Chronic thrombus. No acute thrombus. LEFT POPLITEAL VEIN: Chronic thrombus. No acute thrombus. LEFT CALF VEINS: Chronic thrombus within the left posterior tibial vein. ADDITIONAL FINDINGS: None. IMPRESSION: 1. Chronic DVT is seen within the left common femoral vein extending to the left posterior tibial vein. Signer Name: Quinn Delgado MD Signed: 09/16/2020 9:01 PM Workstation Name: [id number] - Differential Diagnosis DVT, muscle cramps Critical care attestation.: If time is entered above; I have spent that time in minutes in the direct care of this critically ill patient, excluding procedure time. ED Disposition Clinical Impression: Left leg DVT, Unable to bear weight on left lower extremity Disposition: -09 OP ADMIT IP TO THIS HOSP Is pt being admited?: Yes Does the pt Need Aspirin: No Condition: Fair Time of Disposition: 22:12 (Hospitalist notified)
--- NOTE | 2020-09-16 22:05 | Vascular Lab Report ---
DUPLEX DOPPLER LOWER EXTREMITY VEINS, LEFT INDICATION / CLINICAL INFORMATION: left leg pain. TECHNIQUE: Duplex doppler imaging was performed through the veins of the left lower extremity using venous compr ession and other maneuvers. COMPARISON: Left lower extremity venous Doppler dated 01/29/2020. FINDINGS: LEFT COMMON FEMORAL VEIN: Chronic thrombus. No acute thrombus. LEFT FEMORAL VEIN: Chronic thrombus. No acute thrombus. LEFT POPLITEAL VEIN: Chronic thrombus. No acute thrombus. LEFT CALF VEINS: Chronic thrombus within the left posterior tibial vein. ADDITIONAL FINDINGS: None. IMPRESSION: 1. Chronic DVT is seen within the left common femoral vein extending to the left posterior tibial vei nSlime Signer Name: Quinn Delgado MD Signed: 09/16/2020 10:01 PM Workstation Name: [id number]
[2020-09-16] MEDS ORDERED: HYDROmorphone 1 MG/1 ML INJ IV ONE (22:25)
[2020-09-16] MEDS ORDERED: ONDANSETRON 4 MG/2 ML INJ IV PRN (22:35)
[2020-09-16] MEDS ORDERED: ACETAMINOPHEN 325 MG TAB PO PRN (22:35)
[2020-09-16] MEDS ORDERED: ALUM-MAG HYDROXIDE-SIMETHICONE 200-200-20MG/5ML ORAL LIQD 30 ML PO PRN (22:35)
[2020-09-16] MEDS ORDERED: MAGNESIUM HYDROXIDE (MOM) ORAL LIQD UDC PO PRN (22:35)
--- NOTE | 2020-09-16 22:46 | History and Physical Report ---
History of Present Illness Date of examination: 09/16/20 Date of admission: 09/16/20 Chief complaint: Left lower leg pain History of present illness: The patient is a 59-year-old male present with a chief complaint of left calf pain. 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 Patient denies any preceding trauma. Patient describes the pain is constant in nature. Patient denies any history of fever. Patient currently gives his pain a score of 10/10 ED work-up showed WBC 8.1, H/H 17.6, Cr 0.9, Sodium 141, potassium 4.1, glucose 92, Calcium 9.1 PLT 272, Bilateral Chronic DVT seen within the left common femoral vein. Patient seen at bedside. Patient reports lower leg pain-patient also reported chronic DVT left leg left leg pain 10/10 Past History Past Medical History: other (hx of left leg DVT) Past Surgical History: No surgical history Social history: smoking Family history: no significant family history Medications and Allergies Allergies Allergy/AdvReac Type Severity Reaction Status Date / Time No Known Allergies Allergy Verified 09/16/20 17:08 Home Medications Medication Instructions Recorded Confirmed Last Taken Type Budesonide/Formoterol Fumarate 10.2 gm IH BIDPC #1 hfa.aer.ad 09/22/19 12/06/19 Unknown Rx [Symbicort 160-4.5 Mcg Inhaler] HYDROcodone/APAP 10-325 1 tab PO Q6H PRN #15 09/22/19 12/06/19 Unknown Rx Nicotine [Habitrol] 14 mg TD QDAY #14 patch 09/22/19 12/06/19 Unknown Rx Pantoprazole [Protonix TAB] 40 mg PO DAILY #30 tablet 09/22/19 12/06/19 Unknown Rx Aspirin EC [Halfprin EC] 81 mg PO QDAY #30 tablet. 12/06/19 Unknown Rx Apixaban [Eliquis] 1 tab PO BID 09/16/20 09/16/20 Unknown History Review of Systems Constitutional: chronic pain Ears, nose, mouth and throat: no epistaxis, no bleeding gums Cardiovascular: no dyspnea on exertion Respiratory: no congestion Gastrointestinal: heartburn, no melena Rectal: no discharge Musculoskeletal: no morning stiffness, no muscle weakness Integumentary: no rash, no pruritis Exam - Constitutional Vitals: Temp Pulse Resp BP Pulse Ox 98.2 F 72 19 112/71 99 09/16/20 19:57 09/16/20 19:57 09/16/20 21:35 09/16/20 17:11 09/16/20 19:57 General appearance: Present: no acute distress, well-nourished - EENT Eyes: Present: PERRL ENT: hearing intact, clear oral mucosa - Neck Neck: Present: supple, normal ROM - Respiratory Respiratory effort: normal Respiratory: bilateral: CTA - Cardiovascular Heart Sounds: Present: S1 & S2. Absent: rub, click - Extremities Extremities: pulses symmetrical, No edema Extremity abnormal: other (left lower leg pain) Peripheral Pulses: within normal limits - Abdominal General gastrointestinal: Present: soft, non-tender, non-distended, normal bowel sounds Male genitourinary: Present: normal - Integumentary Integumentary: Present: clear, warm, dry - Musculoskeletal Musculoskeletal: gait normal, strength equal bilaterally - Psychiatric Psychiatric: appropriate mood/affect, intact judgment & insight, cooperative - Neurologic Neurologic: CNII-XII intact, moves all extremities - Allied Health Allied health notes reviewed: nursing Results - Labs CBC & Chem 7: 09/16/20 17:23 09/16/20 17:23 Labs: Abnormal lab results 09/16/20 09/16/20 Range/Units 17:23 17:23 Hgb 17.6 H (11.8-15.2) gm/dl Hct 50.8 H (35.5-45.6) % MCV 105 H (84-94) fl MCH 36 H (28-32) pg MCHC 35 H (32-34) % Eos % (Auto) 5.3 H (0.0-4.3) % BUN 7 L (9-20) mg/dL Assessment and Plan - Patient Problems (1) Left leg DVT Current Visit: Yes Status: Acute Plan to address problem: Resume anti-coagulant (2) Unable to bear weight on left lower extremity Current Visit: Yes Status: Acute Plan to address problem: Continue pain management as needed (3) Chronic pulmonary embolism Current Visit: No Status: Acute Plan to address problem: Patient history of PE Patient on home anticoagulant (4) Tobacco abuse Current Visit: Yes Status: Acute (5) DVT prophylaxis Current Visit: No Status: Acute Plan to address problem: discussed tobacco use cessation (6) DVT prophylaxis Current Visit: Yes Status: Acute Plan to address problem: eve
--- NOTE | 2020-09-17 00:07 | XRay Report ---
SOFT TISSUE NECK HISTORY: Possible swallowed foreign body. COMPARISON: None. TECHNIQUE: AP and lateral view(s) of the neck obtained. FINDINGS: Epiglottis: No significant abnormality. Airway: No significant abnormality. Retropharyngeal soft tissues: No significant abnormality. Bones: No significant abnormality. Additional findings: No appreciable radiopaque foreign bodies. IMPRESSION: 1. No appreciable radiopaque foreign body or other acute abnormality. Signer Name: Slade Fernandez MD Signed: 09/17/2020 12:03 AM Workstation Name: [id number]
[2020-09-17] MEDS: MORPHINE 2 MG/1 ML INJ IV PRN ×2 (00:44→08:06)
[2020-09-17 06:17] LABS: Basophils # (Auto) 0.1 K/mm3 (0.0-0.1); Basophils % (Auto) 1.1 % (0.0-1.8); Eosinophils # (Auto) 0.5 K/mm3 (0.0-0.4); Eosinophils % (Auto) 5.2 % (0.0-4.3); Hematocrit 47.9 % (35.5-45.6); Hemoglobin 16.5 gm/dl (11.8-15.2); Lymphocytes # (Auto) 3.1 K/mm3 (1.2-5.4); Lymphocytes % (Auto) 35.7 % (13.4-35.0); Mean Corpuscular HGB Conc 34 % (32-34); Mean Corpuscular Volume 104 fl (84-94); Monocytes # (Auto) 0.8 K/mm3 (0.0-0.8); Platelet Count 246 K/mm3 (140-440); Red Cell Distribution Width 14.7 % (13.2-15.2)
[2020-09-17 06:40] LABS: Alanine Aminotransferase 13 units/L (7-56); Albumin 3.8 g/dL (3.9-5); Blood Urea Nitrogen 8 mg/dL (9-20); Calcium 8.8 mg/dL (8.4-10.2); Hemolysis Index 10
[2020-09-17 06:53] LABS: BUN/Creatinine Ratio 11
--- NOTE | 2020-09-17 10:06 | Progress Note ---
Assessment and Plan Assessment and plan: Left lower extremity DVT. Left lower extremity pain Chronic pulmonary embolism Tobacco abuse 09/17/2020. Continue anticoagulation. Vascular surgery consultation. History Interval history: No new issues overnight. Hospitalist Physical - Constitutional Vitals: Temp Pulse Resp BP Pulse Ox 98.0 F 56 L 18 110/71 96 09/17/20 07:59 09/17/20 07:59 09/17/20 07:59 09/17/20 07:59 09/17/20 07:59 General appearance: Present: no acute distress, well-nourished - EENT Eyes: Present: PERRL, EOM intact ENT: hearing intact, clear oral mucosa, dentition normal - Neck Neck: Present: supple, normal ROM - Respiratory Respiratory effort: normal Respiratory: bilateral: CTA - Cardiovascular Rhythm: regular Heart Sounds: Present: S1 & S2. Absent: gallop, rub - Extremities Extremities: no ischemia, No edema, Full ROM - Abdominal General gastrointestinal: soft, non-tender, non-distended, normal bowel sounds - Integumentary Integumentary: Present: clear, warm, dry - Neurologic Neurologic: CNII-XII intact, moves all extremities Results - Labs CBC & Chem 7: 09/17/20 04:57 09/17/20 04:57 Labs: Laboratory Last Values WBC 8.8 K/mm3 (4.5-11.0) 09/17/20 04:57 RBC 4.60 M/mm3 (3.65-5.03) 09/17/20 04:57 Hgb 16.5 gm/dl (11.8-15.2) H 09/17/20 04:57 Hct 47.9 % (35.5-45.6) H 09/17/20 04:57 MCV 104 fl (84-94) H 09/17/20 04:57 MCH 36 pg (28-32) H 09/17/20 04:57 MCHC 34 % (32-34) 09/17/20 04:57 RDW 14.7 % (13.2-15.2) 09/17/20 04:57 Plt Count 246 K/mm3 (140-440) 09/17/20 04:57 Lymph % (Auto) 35.7 % (13.4-35.0) H 09/17/20 04:57 [place] % (Auto) 9.0 % (0.0-7.3) H 09/17/20 04:57 Eos % (Auto) 5.2 % (0.0-4.3) H 09/17/20 04:57 Baso % (Auto) 1.1 % (0.0-1.8) 09/17/20 04:57 Lymph # (Auto) 3.1 K/mm3 (1.2-5.4) 09/17/20 04:57 [place] # (Auto) 0.8 K/mm3 (0.0-0.8) 09/17/20 04:57 Eos # (Auto) 0.5 K/mm3 (0.0-0.4) H 09/17/20 04:57 Baso # (Auto) 0.1 K/mm3 (0.0-0.1) 09/17/20 04:57 Seg Neutrophils % 49.0 % (40.0-70.0) 09/17/20 04:57 Seg Neutrophils # 4.3 K/mm3 (1.8-7.7) 09/17/20 04:57 PT 13.1 Sec. (12.2-14.9) 09/16/20 19:26 INR 1.00 (0.87-1.13) 09/16/20 19:26 APTT 27.2 Sec. (24.2-36.6) 09/16/20 19:26 Sodium 138 mmol/L (137-145) 09/17/20 04:57 Potassium 3.8 mmol/L (3.6-5.0) 09/17/20 04:57 Chloride 103.7 mmol/L (98-107) 09/17/20 04:57 Carbon Dioxide 24 mmol/L (22-30) 09/17/20 04:57 Anion Gap 14 mmol/L 09/17/20 04:57 BUN 8 mg/dL (9-20) L 09/17/20 04:57 Creatinine 0.7 mg/dL (0.8-1.3) L 09/17/20 04:57 Estimated GFR > 60 ml/min 09/17/20 04:57 BUN/Creatinine Ratio 11 % 09/17/20 04:57 Glucose 102 mg/dL (75-100) H 09/17/20 04:57 Calcium 8.8 mg/dL (8.4-10.2) 09/17/20 04:57 Total Bilirubin 2.00 mg/dL (0.1-1.2) H 09/17/20 04:57 AST 14 units/L (5-40) 09/17/20 04:57 ALT 13 units/L (7-56) 09/17/20 04:57 Alkaline Phosphatase 68 units/L (35-129) 09/17/20 04:57 Total Protein 6.1 g/dL (6.3-8.2) L 09/17/20 04:57 Albumin 3.8 g/dL (3.9-5) L 09/17/20 04:57 Albumin/Globulin Ratio 1.7 % 09/17/20 04:57 [place]/IV: Voiding Method Toilet Active Medications - Current Medications Current Medications: Generic Name Dose Route Start Last Admin Trade Name Freq PRN Reason Stop Dose Admin Acetaminophen 650 mg 09/16/20 22:35 Acetaminophen 325 Mg Tab PO Q4H PRN Pain MILD(1-3)/Fever >100.5/HUNT Al Hydrox/Mg Hydrox/Simethicone 30 ml 09/16/20 22:35 Alum-Mag Hydroxide-Simethicone [id number]/5ml Oral Liqd 30 Ml PO Q4H PRN Indigestion Apixaban 5 mg 09/17/20 10:00 Apixaban 5 Mg Tab PO Q12HR [facility] Protocol Famotidine 10 mg 09/17/20 10:00 Famotidine 10 Mg Tab PO BID PEPE Magnesium Hydroxide 30 ml 09/16/20 22:35 Magnesium Hydroxide (Mom) Oral Liqd Udc PO Q4H PRN Constipation Morphine Sulfate 2 mg 09/17/20 00:37 09/17/20 08:06 Morphine 2 Mg/1 Ml Inj IV 2 mg Q6H PRN Administration Pain , Severe (7-10) Ondansetron HCl 4 mg 09/16/20 22:35 09/17/20 08:06 Ondansetron 4 Mg/2 Ml Inj IV 4 mg Q8H PRN Administration Nausea And Vomiting Senna 8.6 mg 09/17/20 10:00 Sennosides 8.6 Mg Tab PO Q12HR [facility] Sodium Chloride 10 ml 09/17/20 10:00 Sodium Chloride 0.9% 10 Ml Flush Syringe IV BID PEPE Sodium Chloride 10 ml 09/16/20 22:35 09/17/20 00:46 Sodium Chloride 0.9% 10 Ml Flush Syringe IV 10 ml PRN PRN Administration LINE FLUSH
[2020-09-17] MEDS: APIXABAN 5 MG TAB PO SCH ×2 (10:56→21:30)
[2020-09-17] MEDS: SENNOSIDES 8.6 MG TAB PO SCH ×2 (10:56→21:30)
[2020-09-17] MEDS: FAMOTIDINE 10 MG TAB PO SCH ×2 (10:57→21:30)
--- NOTE | 2020-09-17 11:23 | Consultation ---
History of Present Illness - Reason for Consult Consult date: 09/17/20 DVT Requesting physician: MAURILIO BAJWA - History of Present Illness 59-year-old male present with a chief complaint of left calf pain. Patient has a history of DVTs in left lower extremity and states yesterday he developed pain in the left calf so severe he is unable to weight-bear. Patient denies any preceding trauma. Patient describes the pain is constant in nature. Patient denies any history of fever. Patient currently gives his pain a score of 10/10 ED work-up showed WBC 8.1, H/H 17.6, Cr 0.9, Sodium 141, potassium 4.1, glucose 92, Calcium 9.1 PLT 272, Bilateral Chronic DVT seen within the left common femoral vein. Patient seen at bedside. Patient reports lower leg pain-patient also reported chronic DVT left leg left leg pain 10/10 Consulted for left lower extremity DVT. Patient has not followed up in office in a long time due to difficulty obtaining transportation. 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 Patient underwent IVC filter placement in the suprarenal location, thrombectomy and thrombolysis, with resolution of the IVC and right lower extremity thrombus, and left iliac thrombus. The left femoral and infra inguinal thrombus was chronic. He subsequently underwent suprarenal IVC filter removal. Patient is very anxious, and continues to smoke which exacerbates his shortness of breath on exertion. His left lower extremity pain has been present for years. Past History Past Medical History: other (hx of left leg DVT) Past Surgical History: No surgical history Social history: smoking Family history: no significant family history Medications and Allergies Allergies Allergy/AdvReac Type Severity Reaction Status Date / Time No Known Allergies Allergy Verified 09/16/20 17:08 Home Medications Medication Instructions Recorded Confirmed Last Taken Type Budesonide/Formoterol Fumarate 10.2 gm IH BIDPC #1 hfa.aer.ad 09/22/19 12/06/19 Unknown Rx [Symbicort 160-4.5 Mcg Inhaler] HYDROcodone/APAP 10-325 1 tab PO Q6H PRN #15 09/22/19 12/06/19 Unknown Rx Nicotine [Habitrol] 14 mg TD QDAY #14 patch 09/22/19 12/06/19 Unknown Rx Pantoprazole [Protonix TAB] 40 mg PO DAILY #30 tablet 09/22/19 12/06/19 Unknown Rx Aspirin EC [Halfprin EC] 81 mg PO QDAY #30 tablet. 12/06/19 Unknown Rx Apixaban [Eliquis] 1 tab PO BID 09/16/20 09/16/20 Unknown History Active Meds: Active Medications Acetaminophen (Acetaminophen 325 Mg Tab) 650 mg PO Q4H PRN PRN Reason: Pain MILD(1-3)/Fever >100.5/HUNT Al Hydrox/Mg Hydrox/Simethicone (Alum-Mag Hydroxide-Simethicone [id number]/5ml Oral Liqd 30 Ml) 30 ml PO Q4H PRN PRN Reason: Indigestion Apixaban (Apixaban 5 Mg Tab) 5 mg PO Q12HR [facility]; Protocol Last Admin: 09/17/20 10:56 Dose: 5 mg Documented by: Famotidine (Famotidine 10 Mg Tab) 10 mg PO BID [facility] Last Admin: 09/17/20 10:57 Dose: 10 mg Documented by: Magnesium Hydroxide (Magnesium Hydroxide (Mom) Oral Liqd Udc) 30 ml PO Q4H PRN PRN Reason: Constipation Morphine Sulfate (Morphine 2 Mg/1 Ml Inj) 2 mg IV Q6H PRN PRN Reason: Pain , Severe (7-10) Last Admin: 09/17/20 08:06 Dose: 2 mg Documented by: Ondansetron HCl (Ondansetron 4 Mg/2 Ml Inj) 4 mg IV Q8H PRN PRN Reason: Nausea And Vomiting Last Admin: 09/17/20 08:06 Dose: 4 mg Documented by: Senna (Sennosides 8.6 Mg Tab) 8.6 mg PO Q12HR PEPE Last Admin: 09/17/20 10:56 Dose: Not Given Documented by: Sodium Chloride (Sodium Chloride 0.9% 10 Ml Flush Syringe) 10 ml IV BID [facility] Last Admin: 09/17/20 10:58 Dose: 10 ml Documented by: Sodium Chloride (Sodium Chloride 0.9% 10 Ml Flush Syringe) 10 ml IV PRN PRN PRN Reason: LINE FLUSH Last Admin: 09/17/20 00:46 Dose: 10 ml Documented by: Review of Systems All systems: negative (see HPI) Exam - Constitutional Vitals: Temp Pulse Resp BP Pulse Ox 98.0 F 56 L 18 110/71 96 09/17/20 07:59 09/17/20 07:59 09/17/20 07:59 09/17/20 07:59 09/17/20 07:59 General appearance: Present: no acute distress - EENT Eyes: Present: EOM intact ENT: hearing intact - Respiratory Respiratory effort: normal - Extremities Extremities: no ischemia, normal temperature, normal color, abnormal (1+ edema of the left lower extremity with varicosities noted, bilateral palpable posterior tibial pulses and nonpalpable dorsalis pedis pulses) - Abdominal General gastrointestinal: Present: soft, non-tender - Psychiatric Psychiatric: appropriate mood/affect, cooperative Results - Labs CBC & Chem 7: 09/17/20 04:57 09/17/20 04:57 Labs: Abnormal lab results 09/16/20 09/16/20 09/17/20 Range/Units 17:23 17:23 04:57 Hgb 17.6 H 16.5 H (11.8-15.2) gm/dl Hct 50.8 H 47.9 H (35.5-45.6) % MCV 105 H 104 H (84-94) fl MCH 36 H 36 H (28-32) pg MCHC 35 H (32-34) % Lymph % (Auto) 35.7 H (13.4-35.0) % [place] % (Auto) 9.0 H (0.0-7.3) % Eos % (Auto) 5.3 H 5.2 H (0.0-4.3) % Eos # (Auto) 0.5 H (0.0-0.4) K/mm3 BUN 7 L (9-20) mg/dL Creatinine (0.8-1.3) mg/dL Glucose (75-100) mg/dL Total Bilirubin (0.1-1.2) mg/dL Total Protein (6.3-8.2) g/dL Albumin (3.9-5) g/dL 09/17/20 Range/Units 04:57 Hgb (11.8-15.2) gm/dl Hct (35.5-45.6) % MCV (84-94) fl MCH (28-32) pg MCHC (32-34) % Lymph % (Auto) (13.4-35.0) % [place] % (Auto) (0.0-7.3) % Eos % (Auto) (0.0-4.3) % Eos # (Auto) (0.0-0.4) K/mm3 BUN 8 L (9-20) mg/dL Creatinine 0.7 L (0.8-1.3) mg/dL Glucose 102 H (75-100) mg/dL Total Bilirubin 2.00 H (0.1-1.2) mg/dL Total Protein 6.1 L (6.3-8.2) g/dL Albumin 3.8 L (3.9-5) g/dL - Imaging and Cardiology CT scan - chest: report reviewed, image reviewed Venous US: report reviewed, image reviewed Assessment and Plan 59-year-old male with multiple thromboembolic events in the past. He has had successful treatment of pulmonary embolism, IVC thrombus, and right lower extremity thrombus. He has also had successful suprarenal IVC filter placement and removal (patient still has an infrarenal IVC filter), and successful treatment of left iliac vein thrombus. His left femoral and infrainguinal thrombus is chronic and has been chronic for years. Patient has not followed up for a while due to transportation issues. Patient has shortness of breath with exertion and also smokes heavily only recently reducing his pack per day amount. The pulmonary embolism component of this has mostly resolved. Consider pulmonology consult for COPD treatment for his shortness of breath with exertion. The patient has chronic heaviness and tightness in his left lower extremity compatible with his venous symptoms. This is chronic and DVT ultrasound demonstrates no acute component. Recommend ROEL lopez and, when patient follows up in clinic, 30-40 thigh-high compression. I will order a venous ultrasound of the IVC for completeness, but I suspect this will be negative.
--- NOTE | 2020-09-17 18:17 | Vascular Lab Report ---
LIMITED ULTRASOUND OF THE IVC AND ILIAC VEINS INDICATION: Evaluate patency of IVC and common iliac veins. History of DVT, status post IVC filter placement. COMPARISON: Left lower extremity venous Doppler performed on 09/16/2020. FINDINGS: The IVC and the common and external iliac veins are patent. No distinct thrombus is identified. IMPRESSION: No sonographic evidence of thrombosis of the IVC or iliac veins. Signer Name: Omar Berger MD Signed: 09/17/2020 6:12 PM Workstation Name: [id number]
[2020-09-18] MEDS: MORPHINE 2 MG/1 ML INJ IV PRN (08:25)
[2020-09-18] MEDS: SENNOSIDES 8.6 MG TAB PO SCH (10:16)
[2020-09-18] MEDS: APIXABAN 5 MG TAB PO SCH (10:16)
[2020-09-18] MEDS: FAMOTIDINE 10 MG TAB PO SCH (10:16)
[2020-09-18 11:23] VITALS: BP 107/74
--- NOTE | 2020-09-18 12:17 | Discharge Summary ---
Providers - Providers Date of Admission: 09/16/20 22:35 Date of discharge: 09/18/20 Attending physician: MAURILIO BAJWA 09/17/20 07:36 Consult to Physician [CONS] Routine Comment: Consulting Provider: TRENT KENNEY Physician Instructions: Reason For Exam: L DVT 09/17/20 11:06 Physical Therapy Evaluation and Treat [CONS] Routine Comment: Reason For Exam: LLE pain, deconditioning 09/17/20 15:01 Physical Therapy Evaluation and Treat [CONS] Routine Comment: disregard..duplicate order Reason For Exam: debility Primary care physician: ELEN ACHARYA Hospitalization Reason for admission: LLE pain Condition: Fair Hospital course: 59-year-old male present with a chief complaint of left calf pain. Patient has a history of DVTs in left lower extremity and states yesterday he developed pain in the left calf so severe he is unable to weight-bear. P ED work-up showed WBC 8.1, H/H 17.6, Cr 0.9, Sodium 141, potassium 4.1, glucose 92, Calcium 9.1 PLT 272, Bilateral Chronic DVT seen within the left common femoral vein. Vascular surgery was consulted. Patient reported lower leg pain-patient also reported chronic DVT left leg left leg pain 04/27 Patient has not followed up in office in a long time due to difficulty obtaining transportation. 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 Patient underwent IVC filter placement in the suprarenal location, thrombectomy and thrombolysis, with resolution of the IVC and right lower extremity thrombus, and left iliac thrombus. The left femoral and infra inguinal thrombus was chronic. He subsequently underwent suprarenal IVC filter removal and successful treatment of left iliac vein thrombus. His left femoral and infrainguinal thrombus is chronic and has been chronic for years. Vascular surgery felt that This is chronic and DVT ultrasound demonstrates no acute component. Recommended ROEL hose and, when patient follows up in clinic, 30-40 thigh-high compression. Venous ultrasound of the IVC was unremarkable. PT also evaluated patient and recommended [facility] PT dedicated discharge time 35 minutes. . Disposition: TO HOME OR SELFCARE Time spent for discharge: 35 - Discharge Diagnoses (1) Left leg DVT Status: Acute (2) Chronic pulmonary embolism Status: Acute Core Measure Documentation - Palliative Care Palliative Care/ Comfort Measures: Not Applicable - Core Measures Any of the following diagnoses?: none Exam - Constitutional Vitals: Temp Pulse Resp BP Pulse Ox 98.3 F 61 16 107/74 95 09/18/20 09:57 09/18/20 11:20 09/18/20 03:50 09/18/20 09:57 09/18/20 09:57 General appearance: Present: no acute distress, well-nourished - EENT Eyes: Present: PERRL ENT: hearing intact, clear oral mucosa - Neck Neck: Present: supple, normal ROM - Respiratory Respiratory effort: normal Respiratory: bilateral: CTA - Cardiovascular Heart Sounds: Present: S1 & S2. Absent: rub, click - Extremities Extremities: pulses symmetrical, No edema Peripheral Pulses: within normal limits - Abdominal General gastrointestinal: Present: soft, non-tender, non-distended, normal bowel sounds Male genitourinary: Present: normal - Integumentary Integumentary: Present: clear, warm, dry - Musculoskeletal Musculoskeletal: gait normal, strength equal bilaterally - Psychiatric Psychiatric: appropriate mood/affect, intact judgment & insight - Neurologic Neurologic: CNII-XII intact, moves all extremities Plan Activity: advance as tolerated Weight Bearing Status: Weight Bear as Tolerated Follow up with: ELEN ACHARYA MD [Primary Care Provider] - 7 Days Forms: AMA Form Prescriptions: Apixaban [Eliquis] 1 tab PO BID #60 Nicotine [Habitrol] 14 mg TD QDAY #14 patch Aspirin EC [Halfprin EC] 81 mg PO QDAY #30 tablet. HYDROcodone/APAP 10-325 1 tab PO Q6H PRN #15 PRN Reason: Pain, Moderate (4-6) Pantoprazole [Protonix TAB] 40 mg PO DAILY #30 tablet Budesonide/Formoterol Fumarate [Symbicort 160-4.5 Mcg Inhaler] 10.2 gm IH BIDPC #1 hfa.aer.ad
== END 2020-09-18 15:02 | disposition home or self-care (01) ==
LOC: ED 16:47 → 3A 22:35 → 4A 23:29
PROVIDERS: ADMIT Internal Medicine Geriatric Medicine; ATTEND Hospitalist
DX: I82.412 Acute embolism and thrombosis of left femoral vein (principal); I27.82 Chronic pulmonary embolism; F17.200 Nicotine dependence, unspecified, uncomplicated; Z79.82 Long term (current) use of aspirin
CPT/HCPCS: 36415; 70360; 80048; 80053; 85025; 85610; 85730; 93971; 93979; 96372; 96374; 96375; 96376; 97162; 99284; G0378; J1170; J2270; J2405; J3010

== ENCOUNTER 2020-11-03 14:33 | Emergency (ER) | payer OTHER, MEDICARE ==
--- NOTE | 2020-11-03 15:04 | Event Note ---
ED Screening Note Date of service: 11/03/20 Time: 15:00 ED Screening Note: Pt presents to ED with c/o right arm pain/swelling, left lower extremity swelling and pain and SOB and vomiting. Pt states his symptoms started lastnight He states he had the second moderna vaccine this past in right arm pmhx: COPD not on home O2, DVT LLE currently on eliquis and s/p IVC filter and tobacco use. This initial assessment/diagnostic orders/clinical plan/treatment(s) is/are subject to change based on patients health status, clinical progression and re- assessment by fellow clinical providers in the ED. Further treatment and workup at subsequent clinical providers discretion. Patient/guardian urged not to elope from the ED as their condition may be serious if not clinically assessed and managed. Initial orders include: labs/cxr/doppler
[2020-11-03 15:17] LABS: Basophils # (Auto) 0.1 K/mm3 (0.0-0.1); Basophils % (Auto) 0.9 % (0.0-1.8); Eosinophils # (Auto) 0.3 K/mm3 (0.0-0.4); Eosinophils % (Auto) 4.1 % (0.0-4.3); Hematocrit 53.1 % (35.5-45.6); Hemoglobin 18.2 gm/dl (11.8-15.2); Lymphocytes # (Auto) 1.9 K/mm3 (1.2-5.4); Lymphocytes % (Auto) 29.4 % (13.4-35.0); Mean Corpuscular HGB Conc 34 % (32-34); Mean Corpuscular Volume 106 fl (84-94); Monocytes # (Auto) 0.6 K/mm3 (0.0-0.8); Monocytes % (Auto) 9.3 % (0.0-7.3); Platelet Count 272 K/mm3 (140-440); Red Blood Count 5.01 M/mm3 (3.65-5.03); Red Cell Distribution Width 15.1 % (13.2-15.2)
[2020-11-03 15:28] LABS: INR 1.01 (0.87-1.13)
[2020-11-03 15:29] LABS: Partial Thromboplastin Time 21.2 Sec. (24.2-36.6)
[2020-11-03 15:40] LABS: Alanine Aminotransferase 14 units/L (7-56); Albumin 3.9 g/dL (3.9-5); BUN/Creatinine Ratio 6; Blood Urea Nitrogen 5 mg/dL (9-20); Calcium 8.9 mg/dL (8.4-10.2); Hemolysis Index 19
--- NOTE | 2020-11-03 16:50 | XRay Report ---
CHEST 1 VIEW INDICATION / CLINICAL INFORMATION: SOB. COMPARISON: 12/30/2019 FINDINGS: SUPPORT DEVICES: None. HEART / MEDIASTINUM: No significant abnormality. LUNGS / PLEURA: COPD No pneumothorax. ADDITIONAL FINDINGS: No significant additional findings. IMPRESSION: Changes of COPD. No acute disease or interval change from 12/30/2019 Signer Name: Tomi Delgado MD FACR Signed: 11/03/2020 4:46 PM Workstation Name: [id number]
--- NOTE | 2020-11-03 16:54 | Vascular Lab Report ---
DUPLEX DOPPLER LOWER EXTREMITY VEINS, LEFT INDICATION / CLINICAL INFORMATION: Left lower ext swelling. TECHNIQUE: Duplex doppler imaging was performed through the veins of the left lower extremity using venous compr ession and other maneuvers. COMPARISON: None available. FINDINGS: LEFT COMMON FEMORAL VEIN: Chronic DVT LEFT FEMORAL VEIN: Chronic DVT LEFT POPLITEAL VEIN: Chronic DVT LEFT CALF VEINS: Chronic DVT ADDITIONAL FINDINGS: None. IMPRESSION: Chronic deep venous thrombosis is seen extensively in the left leg from the lower pelvis to the calf. Signer Name: Tomi Delgado MD FACR Signed: 11/03/2020 4:49 PM Workstation Name: [id number]
--- NOTE | 2020-11-03 21:18 | Cat Scan Report ---
CTA CHEST WITH CONTRAST INDICATION / CLINICAL INFORMATION: DYSPNEA, H/O DVT. TECHNIQUE: Axial CT images were obtained through the chest after injection of IV contrast. 3 plane MIP and/or 3D reconstructions were produced. All CT scans at this location are performed using CT dose reduction f or ALARA by means of automated exposure control. COMPARISON: CTA chest dated 12/30/2019. FINDINGS: PULMONARY ARTERIES: There is redemonstration of filling defects within both lower lobes, unchanged fr om 12/30/2019. No new pulmonary arterial filling defect is identified. THORACIC AORTA: No significant abnormality. HEART: No significant abnormality. CORONARY ARTERIES: No significant calcification. MEDIASTINUM / PETE: No significant abnormality. PLEURA: No pleural effusion. No pneumothorax. LUNGS: No acute air space or interstitial disease. Bibasilar scarring versus atelectasis. ADDITIONAL FINDINGS: None. UPPER ABDOMEN: No acute findings. SKELETAL STRUCTURES: No significant osseous abnormality. IMPRESSION: 1. Chronic bibasilar pulmonary thromboemboli without evidence of acute PTE. 2. No acute findings. Signer Name: Quinn Delgado MD Signed: 11/03/2020 9:13 PM Workstation Name: [email or web address]
--- NOTE | 2020-11-03 22:33 | Emergency Department Report ---
ED Extremity Problem HPI - General Chief complaint: Extremity Problem,Nontraumatic Stated complaint: LT LEG/RT ARM PAIN Source: patient Mode of arrival: Ambulatory Limitations: No Limitations - History of Present Illness Initial comments: Patient is a 59-year-old white male with a history of chronic left leg DVT and PE s/p IVC filter placement and currently on Eliquis 5 mg twice a day, as well as chronic low back pain who presents to the ED with complaint of acute exacerbation of his chronic left leg pain and low back pain for the last 3 days. Patient also complains of localized right upper arm pain after receiving COVID- 19 vaccination 4 days ago. Patient states that in the last 2 days he also developed exertional shortness of breath and got worried because of his history of chronic DVT and PE and is to come to the ED for evaluation. Patient denies chest pain, dizziness, syncope, traumatic injury, fall, cough, diaphoresis, nausea and vomiting, numbness and tingling or weakness of lower and upper extremities bilaterally, neck pain, palpitations, abdominal pain or heavy lifting. MD Complaint: extremity pain (Diffuse left leg pain), other (Nausea and vomiting, shortness of breath) -: Sudden, days(s) (2 days) Location: lower extremity (Diffuse left lower leg pain) History of Same: Yes (Chronic DVT on the left leg) -: Yes arthralgia (Left leg pain) Radiation: distal Severity scale (0 -10): 7 Quality: aching, sharp Improves with: nothing Worsens with: weight bearing, walking, exertion, palpation Associated Symptoms: denies other symptoms, shortness of breath, arthralgias. denies: chest pain, fever, myalgias, rash - Related Data Previous Rx's Medication Instructions Recorded Last Taken Type Acetaminophen [Acetaminophen TAB] 650 mg PO Q4H PRN tablet 09/18/20 Unknown Rx Antacid [Alum-Mag Hydrox-Simeth 30 ml PO Q4H PRN oral.liqd 09/18/20 Unknown Rx [id number]/5Ml] Apixaban [Eliquis] 1 tab PO BID #60 09/18/20 Unknown Rx Apixaban [Eliquis] 5 mg PO Q12HR tablet 09/18/20 Unknown Rx Aspirin EC [Halfprin EC] 81 mg PO QDAY #30 tablet. 09/18/20 Unknown Rx Budesonide/Formoterol Fumarate 10.2 gm IH BIDPC #1 hfa.aer.ad 09/18/20 Unknown Rx [Symbicort 160-4.5 Mcg Inhaler] HYDROcodone/APAP 10-325 1 tab PO Q6H PRN #15 09/18/20 Unknown Rx Nicotine [Habitrol] 14 mg TD QDAY #14 patch 09/18/20 Unknown Rx Pantoprazole [Protonix TAB] 40 mg PO DAILY #30 tablet 09/18/20 Unknown Rx methOCARBAMOL [Robaxin TAB] 750 mg PO Q8H PRN #24 tablet 11/03/20 Unknown Rx traMADoL [Ultram] 50 mg PO Q6HR PRN #12 tablet 11/03/20 Unknown Rx Allergies Allergy/AdvReac Type Severity Reaction Status Date / Time No Known Allergies Allergy Verified 11/03/20 14:39 ED Review of Systems ROS: Stated complaint: LT LEG/RT ARM PAIN Other details as noted in HPI Constitutional: denies: chills, fever Eyes: denies: eye pain, eye discharge, vision change ENT: denies: ear pain, throat pain Respiratory: shortness of breath. denies: cough, wheezing Cardiovascular: denies: chest pain, palpitations Endocrine: no symptoms reported Gastrointestinal: denies: abdominal pain, nausea, vomiting, diarrhea Genitourinary: denies: urgency, dysuria Musculoskeletal: back pain, arthralgia (Left leg pain), myalgia. denies: joint swelling Skin: denies: rash, lesions Neurological: denies: headache, weakness, paresthesias Psychiatric: denies: anxiety, depression Hematological/Lymphatic: denies: easy bleeding, easy bruising ED Past Medical Hx - Past Medical History Hx Congestive Heart Failure: No Hx Diabetes: No Hx Deep Vein Thrombosis: Yes Hx Pulmonary Embolism: Yes Hx Renal Disease: Yes Hx Asthma: No Hx COPD: No Additional medical history: back problems chronic back pain in pain management. - Surgical History Additional Surgical History: DVT left leg, choco filter - Social History Smoking Status: Current Every Day Smoker Substance Use Type: None - Medications Home Medications: Home Medications Medication Instructions Recorded Confirmed Last Taken Type Acetaminophen [Acetaminophen TAB] 650 mg PO Q4H PRN tablet 09/18/20 Unknown Rx Antacid [Alum-Mag Hydrox-Simeth 30 ml PO Q4H PRN oral.liqd 09/18/20 Unknown Rx [id number]/5Ml] Apixaban [Eliquis] 1 tab PO BID #60 09/18/20 Unknown Rx Apixaban [Eliquis] 5 mg PO Q12HR tablet 09/18/20 Unknown Rx Aspirin EC [Halfprin EC] 81 mg PO QDAY #30 tablet. 09/18/20 Unknown Rx Budesonide/Formoterol Fumarate 10.2 gm IH BIDPC #1 hfa.aer.ad 09/18/20 Unknown Rx [Symbicort 160-4.5 Mcg Inhaler] HYDROcodone/APAP 10-325 1 tab PO Q6H PRN #15 09/18/20 Unknown Rx Nicotine [Habitrol] 14 mg TD QDAY #14 patch 09/18/20 Unknown Rx Pantoprazole [Protonix TAB] 40 mg PO DAILY #30 tablet 09/18/20 Unknown Rx methOCARBAMOL [Robaxin TAB] 750 mg PO Q8H PRN #24 tablet 11/03/20 Unknown Rx traMADoL [Ultram] 50 mg PO Q6HR PRN #12 tablet 11/03/20 Unknown Rx ED Physical Exam - General Limitations: No Limitations General appearance: alert, in no apparent distress - Head Head exam: Present: atraumatic, normocephalic, normal inspection - Eye Eye exam: Present: normal appearance, PERRL, EOMI Pupils: Present: normal accommodation - ENT ENT exam: Present: normal exam, normal orophraynx, mucous membranes moist, TM's normal bilaterally, normal external ear exam - Neck Neck exam: Present: normal inspection, full ROM - Respiratory Respiratory exam: Present: normal lung sounds bilaterally. Absent: respiratory distress, wheezes, rales, rhonchi, chest wall tenderness, accessory muscle use, decreased breath sounds, prolonged expiratory - Cardiovascular Cardiovascular Exam: Present: regular rate, normal rhythm, normal heart sounds. Absent: systolic murmur, diastolic murmur, rubs, gallop - GI/Abdominal GI/Abdominal exam: Present: soft, normal bowel sounds. Absent: distended, tenderness, guarding, rebound, hyperactive bowel sounds, hypoactive bowel sounds, organomegaly - Extremities Exam Extremities exam: Present: normal inspection, full ROM, tenderness (Palpable left thigh and lower leg tenderness), normal capillary refill, calf tenderness (Palpable left calf tenderness). Absent: pedal edema, joint swelling - Back Exam Back exam: Present: normal inspection, full ROM, tenderness (Palpable lumbosacral paraspinal musculoskeletal tenderness), muscle spasm, paraspinal tenderness. Absent: CVA tenderness (R), CVA tenderness (L), vertebral tenderness - Neurological Exam Neurological exam: Present: alert, oriented X3, CN II-XII intact, normal gait, reflexes normal - Psychiatric Psychiatric exam: Present: normal affect, normal mood - Skin Skin exam: Present: warm, dry, intact, normal color. Absent: rash ED Course Vital Signs 11/03/20 14:36 Temperature 98.4 F Pulse Rate 76 Respiratory 20 Rate Blood Pressure 124/76 O2 Sat by Pulse 98 Oximetry ED Medical Decision Making - Lab Data Result diagrams: 11/03/20 15:04 11/03/20 15:04 - EKG Data EKG shows normal: sinus rhythm Rate: normal - EKG Data Interpretation: normal EKG 11/03/20 22:51 EKG shows normal sinus rhythm with a ventricular rate of [address] or T w ave maladies. There is however RVH noted on EKG. - Radiology Data Radiology results: report reviewed, image reviewed [facility] [address] [place] [address] Vascular Lab Report Signed Patient: DOMINGO CARTY MR#: [id number] : 1960 Acct:[id number] Age/Sex: 59 / M ADM Date: 11/03/20 Loc: ED Attending Dr: Ordering Physician: JUVE GRACE Date of Service: 11/03/20 Procedure(s): VL venous duplex LE LT Accession Number(s): [id number] cc: JUVE GRACE DUPLEX DOPPLER LOWER EXTREMITY VEINS, LEFT INDICATION / CLINICAL INFORMATION: Left lower ext swelling. TECHNIQUE: Duplex doppler imaging was performed through the veins of the left lower extremity using venous compression and other maneuvers. COMPARISON: None available. FINDINGS: LEFT COMMON FEMORAL VEIN: Chronic DVT LEFT FEMORAL VEIN: Chronic DVT LEFT POPLITEAL VEIN: Chronic DVT LEFT CALF VEINS: Chronic DVT ADDITIONAL FINDINGS: None. IMPRESSION: Chronic deep venous thrombosis is seen extensively in the left leg from the lower pelvis to the calf. Signer Name: Tomi Delgado MD FACR Signed: 11/03/2020 4:49 PM Workstation Name: [id number] Transcribed By: MS Dictated By: Tomi Delgado MD Electronically Authenticated By: Tomi Delgado MD Signed Date/Time: 11/03/201648 DD/ 46 TD/TT: [place] [address] Cat Scan Report Signed Patient: DOMINGO CARTY MR#: [id number] : 1960 Acct:[id number] Age/Sex: 59 / M ADM Date: 11/03/20 Loc: ED Attending Dr: Ordering Physician: KENY GARCIA Date of Service: 11/03/20 Procedure(s): CT angio chest Accession Number(s): [id number] cc: KENY GARCIA CTA CHEST WITH CONTRAST INDICATION / CLINICAL INFORMATION: DYSPNEA, H/O DVT. TECHNIQUE: Axial CT images were obtained through the chest after injection of IV contrast. 3 plane MIP and/or 3D reconstructions were produced. All CT scans at this location are performed using CT dose reduction for ALARA by means of automated exposure control. COMPARISON: CTA chest dated 12/30/2019. FINDINGS: PULMONARY ARTERIES: There is redemonstration of filling defects within both lower lobes, unchanged from 12/30/2019. No new pulmonary arterial filling defect is identified. THORACIC AORTA: No significant abnormality. HEART: No significant abnormality. CORONARY ARTERIES: No significant calcification. MEDIASTINUM / PETE: No significant abnormality. PLEURA: No pleural effusion. No pneumothorax. LUNGS: No acute air space or interstitial disease. Bibasilar scarring versus atelectasis. ADDITIONAL FINDINGS: None. UPPER ABDOMEN: No acute findings. SKELETAL STRUCTURES: No significant osseous abnormality. IMPRESSION: 1. Chronic bibasilar pulmonary thromboemboli without evidence of acute PTE. 2. No acute findings. Signer Name: Gillian Delgado MD Signed: 11/03/2020 9:13 PM Workstation Name: [id number] Transcribed By: SS Dictated By: GILLIAN DELGADO Electronically Authenticated By: GILLIAN DELGADO Signed Date/Time: 11/03/202112 DD/ 06 TD/TT: [facility] [address] [place] [address] XRay Report Signed Patient: DOMINGO CARTY MR#: [id number] : 1960 Acct:[id number] Age/Sex: 59 / M ADM Date: 11/03/20 Loc: ED Attending Dr: Ordering Physician: JUVE GRACE Date of Service: 11/03/20 Procedure(s): XR chest 1V ap Accession Number(s): [id number] cc: JUVE GRACE Fluoro Time In Minutes: CHEST 1 VIEW INDICATION / CLINICAL INFORMATION: SOB. COMPARISON: 12/30/2019 FINDINGS: SUPPORT DEVICES: None. HEART / MEDIASTINUM: No significant abnormality. LUNGS / PLEURA: COPD No pneumothorax. ADDITIONAL FINDINGS: No significant additional findings. IMPRESSION: Changes of COPD. No acute disease or interval change from 12/30/2019 Signer Name: Tomi Delgado MD FACR Signed: 11/03/2020 4:46 PM Workstation Name: [id number] Transcribed By: MS Dictated By: Tomi Delgado MD Electronically Authenticated By: Tomi Delgado MD Signed Date/Time: 11/03/201645 DD/ 44 TD/TT: - Medical Decision Making This is a 59-year-old white male with a history of chronic left leg DVT and PE s/p IVC filter placement and currently on Eliquis 5 mg twice a day, as well as chronic low back pain who presents to the ED with complaint of acute exacerbation of his chronic left leg pain and low back pain for the last 3 days. Patient also complains of localized right upper arm pain after receiving COVID-19 vaccination 4 days ago. Patient states that in the last 2 days he also developed exertional shortness of breath and got worried because of his history of chronic DVT and PE and is to come to the ED for evaluation. In the ED, patient is alert and oriented x3 and is not in any distress. Chest x-ray shows no acute cardiopulmonary abnormalities or pneumonitis. EKG shows normal sinus rhythm with a ventricular rate of [address] or T wave abnormalities. Left leg Doppler ultrasound showed chronic deep venous thrombosis is seen extensively in the left leg from the lower pelvis to the calf. The chest CTA showed no acute abnormalities except for chronic bibasilar pulmonary thromboemboli without evidence of acute PTE, which is unchanged from December 30, 2019 imaging. Lab test results were reviewed and are all nonactionable. Patient was treated for pain in the ED and given the fact that the patient is currently on Eliquis 5 mg twice a day, and the fact that the patient's DVTs and PEs are chronic, patient was discharged home on pain medications and advised to follow-up with his primary care physician and his vascular physician in the next 3 to 5 days for reevaluation. Patient was advised to continue taking his regular anticoagulant Eliquis as previously prescribed and to return to ED immediately if symptoms get worse. - Differential Diagnosis Chronic DVT; chronic PE; ACS; dissection; muscle strain; chronic pain Critical care attestation.: If time is entered above; I have spent that time in minutes in the direct care of this critically ill patient, excluding procedure time. ED Disposition Clinical Impression: Chronic deep vein thrombosis (DVT) of left lower extremity Qualifiers: Affected thrombotic vein of extremity: unspecified lower extremity distal vein Qualified Code(s): I82.5Z2 - Chronic embolism and thrombosis of unspecified deep veins of left distal lower extremity Chronic pulmonary embolism Qualifiers: Pulmonary embolism type: unspecified Acute cor pulmonale presence: without acute cor pulmonale Qualified Code(s): I27.82 - Chronic pulmonary embolism Muscle strain of left lower extremity Qualifiers: Encounter type: initial encounter Qualified Code(s): S86.912A - Strain of unspecified muscle(s) and tendon(s) at lower leg level, left leg, initial encounter Chronic low back pain without sciatica Qualifiers: Back pain laterality: bilateral Qualified Code(s): M54.5 - Low back pain Disposition: TO HOME OR SELFCARE Is pt being admited?: No Does the pt Need Aspirin: No Condition: Stable Instructions: Muscle Strain, [id number], Pulmonary Embolism, Chronic Back Pain, [id number], Venous Thromboembolism Prevention Additional Instructions: All lab test results were reviewed and are all nonactionable. Chest x-ray showed no acute cardiopulmonary abnormalities or pneumonitis. The left leg Doppler ultrasound showed no acute DVT but chronic DVT which is unchanged from the previous imaging tests. The chest CTA showed chronic PE in the lower lobes but no acute PE. Therefore take your regular anticoagulant medication Eliquis 5 mg twice a day as previously prescribed, take pain medication as needed with food, drink plenty of fluids and follow-up with your primary care physician and your vascular physician in 3 to 5 days for reevaluation. Return to the ED immediately if symptoms get worse. Prescriptions: methOCARBAMOL [Robaxin TAB] 750 mg PO Q8H PRN #24 tablet PRN Reason: Muscle Spasm traMADoL [Ultram] 50 mg PO Q6HR PRN #12 tablet PRN Reason: Pain Referrals: [facility] [Provider Group] - 3-5 Days Time of Disposition: 22:42 Print Language: ROMANIAN
[2020-11-03] MEDS ORDERED: ONDANSETRON 4 MG ODT TAB PO ONE (22:44)
[2020-11-03] MEDS ORDERED: HYDROcodone/ACETAMINOPHEN 5-325 MG TAB PO ONE (22:44)
[2020-11-03 23:00] VITALS: BP 133/82
--- NOTE | 2020-11-04 13:48 | Electrocardiograph Report ---
[facility] Test Date: 2020-11-03 Test Time: 20:16:34 Pat Name: DOMINGO CARTY Department: Room: Gender: M Quality Control Analyst: PURNIMA : 1960 Requested By: JUVE GRACE Order Number: [id number] Reading MD: Nick Barrios Measurements Intervals [place] Rate: 62 P: 67 LA: 158 QRS: 220 QRSD: 110 T: 31 QT: 416 QTc: 422 Interpretive Statements Sinus rhythm Right bundle branch block No previous ECG available for comparison Electronically Signed On 11-04-2020 13:48:13 EDT by Nick Barrios
== END 2020-11-03 23:01 | disposition home or self-care (01) ==
LOC: ED 14:33
DX: S86.912A Strain of unspecified muscle(s) and tendon(s) at lower leg level, left leg, initial encounter (principal); I82.502 Chronic embolism and thrombosis of unspecified deep veins of left lower extremity; I27.82 Chronic pulmonary embolism; M54.5 Low back pain; G89.29 Other chronic pain; F17.200 Nicotine dependence, unspecified, uncomplicated; Z79.899 Other long term (current) drug therapy; X58.XXXA Exposure to other specified factors, initial encounter; Y93.89 Activity, other specified; Y92.89 Other specified places as the place of occurrence of the external cause; Y99.8 Other external cause status
CPT/HCPCS: 36415; 71045; 71275; 80053; 83690; 84484; 85025; 85610; 85730; 93005; 93971; 99284; Q9967; Q0162